=== PATIENT | female | born 1940 | race Caucasian/White ===

== ENCOUNTER 2020-02-07 11:12 | Outpatient (REF) | payer MEDICARE, OTHER, SELFPAY ==
[2020-02-07 13:35] LABS: Iron 105 mcg/dL (30-160); Percent Iron Saturation 30 % (15-50); Total Iron Binding Capacity 351 mcg/dL (228-428); Unsaturated Iron Binding 246 ug/dL
[2020-02-07 14:01] LABS: Ferritin 191 ng/mL (10-250); Vitamin D 25-OH Total 58.4 ng/mL (>30)
[2020-02-07 14:06] LABS: Vitamin B12 513 pg/mL (200-900)
== END 2020-02-07 11:13 | disposition home or self-care (01) ==
LOC: HO.MANLDS 11:12
PROVIDERS: PCP Internal Medicine; Visit Provider Internal Medicine
DX: G57.90 Unspecified mononeuropathy of unspecified lower limb (principal); I10 Essential (primary) hypertension
CPT/HCPCS: 82306; 82607; 82728; 83540

== ENCOUNTER 2020-07-10 09:21 | Outpatient (REF) | payer MEDICARE, OTHER, SELFPAY ==
[2020-07-10 12:01] LABS: Estimated Average Glucose 117 mg/dL; Hemoglobin A1c % 5.7 %
[2020-07-10 12:19] LABS: Cholesterol 176 mg/dL; HDL Cholesterol 45 mg/dL; LDL Cholesterol Calculated 90 mg/dl; Triglycerides 205 mg/dL
== END 2020-07-10 09:22 | disposition home or self-care (01) ==
LOC: HO.MANLDS 09:21
PROVIDERS: PCP Internal Medicine; Visit Provider Internal Medicine
DX: E11.9 Type 2 diabetes mellitus without complications (principal)
CPT/HCPCS: 36415; 80061; 83036

== ENCOUNTER 2021-01-26 10:34 | Outpatient (REF) | payer MEDICARE, OTHER, SELFPAY ==
[2021-01-26 14:36] LABS: Estimated Average Glucose 123 mg/dL; Hemoglobin A1c % 5.9 %
[2021-01-26 14:47] LABS: Cholesterol 170 mg/dL; HDL Cholesterol 44 mg/dL; LDL Cholesterol Calculated 93 mg/dl; Triglycerides 167 mg/dL
== END 2021-01-26 10:35 | disposition home or self-care (01) ==
LOC: HO.MANLDS 10:34
PROVIDERS: PCP Internal Medicine; Visit Provider Internal Medicine
DX: R73.01 Impaired fasting glucose (principal); E78.5 Hyperlipidemia, unspecified
CPT/HCPCS: 36415; 80061; 83036

== ENCOUNTER 2021-08-13 10:14 | Outpatient (REF) | payer MEDICARE, OTHER, SELFPAY ==
[2021-08-13 13:10] LABS: Estimated Average Glucose 126 mg/dL
[2021-08-13 13:16] LABS: Cholesterol 160 mg/dL; HDL Cholesterol 41 mg/dL; LDL Cholesterol Calculated 93 mg/dl; Triglycerides 130 mg/dL
== END 2021-08-13 10:15 | disposition home or self-care (01) ==
LOC: HO.MANLDS 10:14
PROVIDERS: PCP Internal Medicine; Visit Provider Internal Medicine
DX: R73.01 Impaired fasting glucose (principal); E78.5 Hyperlipidemia, unspecified
CPT/HCPCS: 36415; 80061; 83036

== ENCOUNTER 2021-10-11 10:45 | Outpatient (REF) | payer MEDICARE, OTHER, SELFPAY ==
[2021-10-11 13:29] LABS: MANUAL DIFF FLAG NO
[2021-10-11 13:45] LABS: Basophils Percent Auto 0.5 % (0-2); Eosinophils Percent Auto 0.6 % (0-4); Hematocrit 43.9 % (37.0-47.0); Hemoglobin 13.8 g/dl (12.0-16.0); Imm Gran Abs Auto 0.01 X10*3/uL (0.00-0.03); Imm Gran Pct Auto 0.2 % (0.0-0.4); Lymphocytes Absolute Auto 1.5 X10*3/uL (1.2-4.9); Lymphocytes Percent Auto 23.5 % (20-40); Mean Corpuscular HGB Conc 31.4 g/dl (31.0-35.0); Mean Corpuscular Hemoglobin 28.4 pg (27.0-33.0); Mean Corpuscular Volume 90.3 fL (80.0-98.0); Mean Platelet Volume 10.7 fL (9.4-12.3); Monocytes Absolute Auto 0.3 X10*3/uL (0.1-1.2); Monocytes Percent Auto 5.2 % (2-11); Neutrophils Absolute Auto 4.4 x10*3/uL (2.0-8.3); Platelet Count 263 X10*3/uL (160-400); Red Blood Count 4.86 X10*6/uL (4.20-5.50); Red Cell Distribution Width 13.6 % (11.0-16.0); White Blood Count 6.3 X10*3/uL (4.8-10.8)
[2021-10-11 14:18] LABS: Alanine Aminotransferase 41 U/L (0-31); Albumin Level 4.5 g/dL (3.5-5.0); Alkaline Phosphatase 72 U/L (39-117); Anion Gap 14 (12-20); Aspartate Amino Transferase 41 U/L (5-31); Bilirubin Total 0.9 mg/dL (0.0-1.0); Blood Urea Nitrogen 17 mg/dL (9-16); C Reactive Protein 0.52 mg/dL (< or = 0.50); Calcium 9.7 mg/dL (8.4-10.2); Carbon Dioxide 30 mmol/L (22-29); Chloride 104 mmol/L (96-108); Estimated Glomerular Filt Rate 42; Glucose Random 152 mg/dL (60-115); Potassium 4.1 mmol/L (3.3-5.1); Sodium 144 mmol/L (135-145); Total Protein 7.4 g/dL (6.5-8.0)
[2021-10-11 14:27] LABS: Erythrocyte Sedimentation Rate 28 MM/HR (0-20)
[2021-10-11 14:43] LABS: Free T4 (Free Thyroxine) 0.86 ng/dL (0.71-1.85); Thyroid Stimulating Hormone 1.96 uIU/mL (0.32-4.0)
[2021-10-12 09:32] LABS: Lyme Abs Screen <0.90 index
[2021-10-12 12:32] LABS: Anti Nuclear Antibody Screen NEGATIVE (NEGATIVE)
[2021-10-16 12:47] LABS: A. Phagocytophilum Ab IgG <1:64 (<1:64); A. Phagocytophilum Ab IgM <1:20 (<1:20); E. Chaffeensis Ab IgG <1:64 (<1:64); E. Chaffeensis Ab IgM <1:20 (<1:20)
== END 2021-10-11 10:46 | disposition home or self-care (01) ==
LOC: HO.MANLDS 10:45
PROVIDERS: Visit Provider Physician Assistant
DX: R61 Generalized hyperhidrosis (principal)
CPT/HCPCS: 36415; 80053; 84439; 84443; 85025; 85652; 86038; 86039; 86140; 86617; 86618; 86666

== ENCOUNTER 2022-05-25 09:53 | Outpatient (REF) | payer MEDICARE, OTHER, SELFPAY ==
[2022-05-25 13:04] LABS: MANUAL DIFF FLAG NO
[2022-05-25 13:14] LABS: Basophils Percent Auto 0.4 % (0-2); Eosinophils Percent Auto 0.6 % (0-4); Hematocrit 43.4 % (37.0-47.0); Hemoglobin 13.9 g/dl (12.0-16.0); Imm Gran Abs Auto 0.02 X10*3/uL (0.00-0.03); Imm Gran Pct Auto 0.3 % (0.0-0.4); Lymphocytes Absolute Auto 1.6 X10*3/uL (1.2-4.9); Lymphocytes Percent Auto 22.8 % (20-40); Mean Corpuscular Hemoglobin 29.1 pg (27.0-33.0); Monocytes Absolute Auto 0.4 X10*3/uL (0.1-1.2); Monocytes Percent Auto 5.7 % (2-11); Neutrophils Absolute Auto 4.9 x10*3/uL (2.0-8.3); Neutrophils Percent Auto 70.2 % (45-73); Platelet Count 236 X10*3/uL (160-400); Red Blood Count 4.77 X10*6/uL (4.20-5.50); Red Cell Distribution Width 13.7 % (11.0-16.0); White Blood Count 6.9 X10*3/uL (4.8-10.8)
[2022-05-25 13:21] LABS: Estimated Average Glucose 123 mg/dL; Hemoglobin A1C 150.9468 umol/L; Hemoglobin A1c % 5.9 %
[2022-05-25 13:43] LABS: Alanine Aminotransferase 52 U/L (0-31); Albumin Level 4.3 g/dL (3.5-5.0); Alkaline Phosphatase 72 U/L (39-117); Anion Gap 15 (12-20); Aspartate Amino Transferase 45 U/L (5-31); Bilirubin Total 1.5 mg/dL (0.0-1.0); Blood Urea Nitrogen 18 mg/dL (9-16); C Reactive Protein 0.47 mg/dL (< or = 0.50); Calcium 10.3 mg/dL (8.4-10.2); Carbon Dioxide 33 mmol/L (22-29); Chloride 100 mmol/L (96-108); Estimated Glomerular Filt Rate 42; Glucose Random 98 mg/dL (60-115); Potassium 4.9 mmol/L (3.3-5.1); Sodium 143 mmol/L (135-145); Total Protein 6.9 g/dL (6.5-8.0)
[2022-05-25 14:03] LABS: Thyroid Stimulating Hormone 2.54 uIU/mL (0.32-4.0)
[2022-05-25 14:12] LABS: Erythrocyte Sedimentation Rate 28 MM/HR (0-20)
== END 2022-05-25 09:54 | disposition home or self-care (01) ==
LOC: HO.MANLDS 09:53
PROVIDERS: PCP Internal Medicine; Visit Provider Physician Assistant
DX: R61 Generalized hyperhidrosis (principal); R73.01 Impaired fasting glucose
CPT/HCPCS: 36415; 80053; 83036; 84443; 85025; 85652; 86140

== ENCOUNTER 2022-11-04 10:18 | Outpatient (REF) | payer MEDICARE, OTHER, SELFPAY ==
[2022-11-04 13:21] LABS: MANUAL DIFF FLAG NO
[2022-11-04 13:31] LABS: Basophils Percent Auto 0.4 % (0-2); Eosinophils Absolute Auto 0.1 X10*3/uL (0.0-0.4); Eosinophils Percent Auto 0.7 % (0-4); Hematocrit 41.8 % (37.0-47.0); Hemoglobin 13.2 g/dl (12.0-16.0); Imm Gran Abs Auto 0.03 X10*3/uL (0.00-0.03); Imm Gran Pct Auto 0.4 % (0.0-0.4); Lymphocytes Absolute Auto 1.4 X10*3/uL (1.2-4.9); Lymphocytes Percent Auto 19.3 % (20-40); Mean Corpuscular HGB Conc 31.6 g/dl (31.0-35.0); Mean Corpuscular Hemoglobin 29.1 pg (27.0-33.0); Mean Corpuscular Volume 92.1 fL (80.0-98.0); Mean Platelet Volume 11.4 fL (9.4-12.3); Monocytes Absolute Auto 0.4 X10*3/uL (0.1-1.2); Monocytes Percent Auto 5.6 % (2-11); Neutrophils Absolute Auto 5.2 x10*3/uL (2.0-8.3); Neutrophils Percent Auto 73.6 % (45-73); Platelet Count 218 X10*3/uL (160-400); Red Blood Count 4.54 X10*6/uL (4.20-5.50); Red Cell Distribution Width 14.6 % (11.0-16.0); White Blood Count 7.1 X10*3/uL (4.8-10.8)
[2022-11-04 13:57] LABS: Alanine Aminotransferase 28 U/L (0-31); Albumin Level 4.2 g/dL (3.5-5.0); Alkaline Phosphatase 64 U/L (39-117); Anion Gap 13 (12-20); Aspartate Amino Transferase 27 U/L (5-31); Bilirubin Total 0.8 mg/dL (0.0-1.0); Blood Urea Nitrogen 19 mg/dL (9-16); Calcium 10.5 mg/dL (8.4-10.2); Carbon Dioxide 29 mmol/L (22-29); Chloride 105 mmol/L (96-108); Estimated Glomerular Filt Rate 43; Glucose Random 111 mg/dL (60-115); Potassium 4.5 mmol/L (3.3-5.1); Sodium 142 mmol/L (135-145); Total Protein 7.2 g/dL (6.5-8.0)
[2022-11-04 14:12] LABS: Erythrocyte Sedimentation Rate 23 MM/HR (0-20)
[2022-11-08 00:49] LABS: Lyme Abs Screen <0.90 index
== END 2022-11-04 10:19 | disposition home or self-care (01) ==
LOC: HO.MANLDS 10:18
PROVIDERS: Visit Provider Internal Medicine
DX: R59.9 Enlarged lymph nodes, unspecified (principal); M25.50 Pain in unspecified joint
CPT/HCPCS: 36415; 80053; 85025; 85652; 86617; 86618

== ENCOUNTER 2022-11-25 08:18 | Outpatient (REF) | payer MEDICARE, OTHER, SELFPAY ==
[2022-11-25 13:02] LABS: MANUAL DIFF FLAG NO
[2022-11-25 13:31] LABS: Estimated Average Glucose 111 mg/dL; Hemoglobin A1c % 5.5 % (<6.0)
[2022-11-25 13:34] LABS: Basophils Percent Auto 0.4 % (0-2); Eosinophils Absolute Auto 0.1 X10*3/uL (0.0-0.4); Eosinophils Percent Auto 1.2 % (0-4); Hematocrit 45.3 % (37.0-47.0); Hemoglobin 14.3 g/dl (12.0-16.0); Imm Gran Abs Auto 0.02 X10*3/uL (0.00-0.03); Imm Gran Pct Auto 0.3 % (0.0-0.4); Lymphocytes Absolute Auto 1.4 X10*3/uL (1.2-4.9); Lymphocytes Percent Auto 18.2 % (20-40); Mean Corpuscular HGB Conc 31.6 g/dl (31.0-35.0); Mean Corpuscular Hemoglobin 29.3 pg (27.0-33.0); Mean Corpuscular Volume 92.8 fL (80.0-98.0); Mean Platelet Volume 10.5 fL (9.4-12.3); Monocytes Absolute Auto 0.5 X10*3/uL (0.1-1.2); Monocytes Percent Auto 5.9 % (2-11); Neutrophils Absolute Auto 5.8 x10*3/uL (2.0-8.3); Platelet Count 257 X10*3/uL (160-400); Red Blood Count 4.88 X10*6/uL (4.20-5.50); Red Cell Distribution Width 14.6 % (11.0-16.0); White Blood Count 7.8 X10*3/uL (4.8-10.8)
[2022-11-25 14:11] LABS: Alanine Aminotransferase 27 U/L (0-31); Albumin Level 4.5 g/dL (3.5-5.0); Alkaline Phosphatase 60 U/L (39-117); Anion Gap 16 (12-20); Aspartate Amino Transferase 36 U/L (5-31); Bilirubin Total 1.3 mg/dL (0.0-1.0); Blood Urea Nitrogen 18 mg/dL (9-16); Carbon Dioxide 28 mmol/L (22-29); Chloride 101 mmol/L (96-108); Cholesterol 187 mg/dL (<200); Estimated Glomerular Filt Rate 37; Glucose Random 99 mg/dL (60-115); HDL Cholesterol 41 mg/dL (>40); LDL Cholesterol Calculated 96 mg/dL (<100); Potassium 4.3 mmol/L (3.3-5.1); Sodium 141 mmol/L (135-145); Total Protein 8.1 g/dL (6.5-8.0); Triglycerides 250 mg/dL (<150)
== END 2022-11-25 08:19 | disposition home or self-care (01) ==
LOC: HO.MANLDS 08:18
PROVIDERS: Physician Assistant; Visit Provider Internal Medicine
DX: R73.01 Impaired fasting glucose (principal); I25.10 Atherosclerotic heart disease of native coronary artery without angina pectoris
CPT/HCPCS: 36415; 80053; 80061; 83036; 85025

== ENCOUNTER 2023-02-28 08:51 | Outpatient (REF) | payer MEDICARE, OTHER, SELFPAY ==
[2023-02-28 13:48] LABS: MANUAL DIFF FLAG NO
[2023-02-28 13:53] LABS: Basophils Absolute Auto 0.1 X10*3/uL (0.0-0.2); Basophils Percent Auto 0.7 % (0-2); Eosinophils Absolute Auto 0.1 X10*3/uL (0.0-0.4); Eosinophils Percent Auto 0.8 % (0-4); Hematocrit 45.4 % (37.0-47.0); Hemoglobin 14.1 g/dl (12.0-16.0); Imm Gran Abs Auto 0.02 X10*3/uL (0.00-0.03); Imm Gran Pct Auto 0.3 % (0.0-0.4); Lymphocytes Absolute Auto 1.5 X10*3/uL (1.2-4.9); Lymphocytes Percent Auto 19.6 % (20-40); Mean Corpuscular HGB Conc 31.1 g/dl (31.0-35.0); Mean Corpuscular Hemoglobin 29.1 pg (27.0-33.0); Mean Corpuscular Volume 93.6 fL (80.0-98.0); Monocytes Absolute Auto 0.3 X10*3/uL (0.1-1.2); Monocytes Percent Auto 4.3 % (2-11); Neutrophils Absolute Auto 5.5 x10*3/uL (2.0-8.3); Neutrophils Percent Auto 74.3 % (45-73); Platelet Count 272 X10*3/uL (160-400); Red Blood Count 4.85 X10*6/uL (4.20-5.50); Red Cell Distribution Width 14.2 % (11.0-16.0); White Blood Count 7.5 X10*3/uL (4.8-10.8)
[2023-02-28 14:07] LABS: Estimated Average Glucose 120 mg/dL; Hemoglobin A1c % 5.8 % (<6.0)
[2023-02-28 14:26] LABS: Alanine Aminotransferase 37 U/L (0-31); Albumin Level 4.6 g/dL (3.5-5.0); Alkaline Phosphatase 68 U/L (39-117); Anion Gap 16 (12-20); Aspartate Amino Transferase 38 U/L (5-31); Bilirubin Total 0.9 mg/dL (0.0-1.0); Blood Urea Nitrogen 26 mg/dL (9-16); Calcium 10.7 mg/dL (8.4-10.2); Carbon Dioxide 30 mmol/L (22-29); Chloride 101 mmol/L (96-108); Cholesterol 195 mg/dL (<200); Estimated Glomerular Filt Rate 37; Glucose Random 110 mg/dL (60-115); HDL Cholesterol 44 mg/dL (>40); LDL Cholesterol Calculated 112 mg/dL (<100); Sodium 143 mmol/L (135-145); Total Protein 8.3 g/dL (6.5-8.0); Triglycerides 195 mg/dL (<150)
== END 2023-02-28 08:52 | disposition home or self-care (01) ==
LOC: HO.MANLDS 08:51
PROVIDERS: Visit Provider Physician Assistant
DX: I25.10 Atherosclerotic heart disease of native coronary artery without angina pectoris (principal); R73.01 Impaired fasting glucose
CPT/HCPCS: 36415; 80053; 80061; 83036; 85025

== ENCOUNTER 2023-12-11 10:09 | Outpatient (REF) | payer MEDICARE, OTHER, SELFPAY ==
[2023-12-11 10:14] LABS: MANUAL DIFF FLAG NO
[2023-12-11 13:37] LABS: Basophils Percent Auto 0.4 % (0-2); Eosinophils Absolute Auto 0.1 X10*3/uL (0.0-0.4); Eosinophils Percent Auto 1.3 % (0-4); Hematocrit 29.4 % (37.0-47.0); Imm Gran Abs Auto 0.03 X10*3/uL (0.00-0.03); Imm Gran Pct Auto 0.4 % (0.0-0.4); Lymphocytes Absolute Auto 1.4 X10*3/uL (1.2-4.9); Lymphocytes Percent Auto 18.4 % (20-40); Mean Corpuscular HGB Conc 30.6 g/dl (31.0-35.0); Mean Corpuscular Hemoglobin 29.3 pg (27.0-33.0); Mean Corpuscular Volume 95.8 fL (80.0-98.0); Mean Platelet Volume 10.7 fL (9.4-12.3); Monocytes Absolute Auto 0.3 X10*3/uL (0.1-1.2); Monocytes Percent Auto 4.3 % (2-11); Neutrophils Absolute Auto 5.8 x10*3/uL (2.0-8.3); Neutrophils Percent Auto 75.2 % (45-73); Platelet Count 316 X10*3/uL (160-400); Red Blood Count 3.07 X10*6/uL (4.20-5.50); Red Cell Distribution Width 15.3 % (11.0-16.0); White Blood Count 7.7 X10*3/uL (4.8-10.8)
[2023-12-11 13:55] LABS: Estimated Average Glucose 103 mg/dL; Hemoglobin A1c % 5.2 % (<6.0)
[2023-12-11 14:19] LABS: Alanine Aminotransferase 15 U/L (0-31); Albumin Level 4.2 g/dL (3.5-5.0); Alkaline Phosphatase 47 U/L (39-117); Anion Gap 12 (12-20); Aspartate Amino Transferase 19 U/L (5-31); Bilirubin Total 0.6 mg/dL (0.0-1.0); Blood Urea Nitrogen 14 mg/dL (9-16); Calcium 9.1 mg/dL (8.4-10.2); Carbon Dioxide 29 mmol/L (22-29); Chloride 107 mmol/L (96-108); Cholesterol 137 mg/dL (<200); Estimated Glomerular Filt Rate 55; Glucose Random 103 mg/dL (60-115); HDL Cholesterol 37 mg/dL (>40); LDL Cholesterol Calculated 58 mg/dL (<100); Potassium 3.9 mmol/L (3.3-5.1); Sodium 144 mmol/L (135-145); Triglycerides 211 mg/dL (<150)
== END 2023-12-11 10:10 | disposition home or self-care (01) ==
LOC: HO.MANLDS 10:09
PROVIDERS: Visit Provider Internal Medicine
DX: I25.10 Atherosclerotic heart disease of native coronary artery without angina pectoris (principal); R73.01 Impaired fasting glucose
CPT/HCPCS: 36415; 80053; 80061; 83036; 85025

== ENCOUNTER 2024-04-24 10:42 | Outpatient (REF) | payer MEDICARE, OTHER, SELFPAY ==
--- OUTSIDE RECORDS SUMMARY | 2024-04-24 11:51 | XMS_ITS | Continuity of Care Document ---
Author Organization [facility] Address [address] [place] [address]- Care Team Providers Care Clin Tech Name Role Phone Patrice Velasquez DO Primary Care Physician Encounter [facility] Date(s): 03/22/24 - 04/21/24 [facility] [address] [address]- Attending Physician: Larisa Crum Admitting Physician: Larisa Crum Referring Physician: AdmtrLarisa Encounter Type: Triage Allergies, Adverse Reactions, Alerts Substance Criticality Severity Reaction Reaction Severity Status isosorbide mononitrate Unable to assess criticality Persistent Severe unknown Active lisinopril COUGH Active shellfish 1 REDNESS AND SWEELING OF FACE Active Adhesive Bandage redness/swe llin g/itching Active Contrast Dye 2 Unable to assess criticality Persistent Severe chest tightness/hyper tension Active Glutens GI Active Latex 3 ITCHING AND BLISTERS Active Peanuts [place] Soybean Active Pollen congestion Active Strawberries GI Active Tomatoes GI UPSET Active Wheat GI Active Carrots GI Active Potatoes GI Active Other Environmental Allergy SEVERE RASH AND REDNESS FROM HEAD TO TOE hospital linen develops rash Active Rice GI Active Soy Products GI Active Onions GI Active Yeni hot lemon/near reaction Active 1hives/vomiting 2chest tightness/hypertension 3patient gets blisters Medications acetaminophen 325 mg oral tablet 650 mg, By Mouth, Every 4 hours, Refills 0, Maintenance, 11/30/23 8:12:00 AM EDT, Partial fill upon patient request if the prescription is for a schedule II opioid drug. Start Date: 11/30/23 Status: Ordered Repeat number: 1 Alpha Lipoic Acid 600 mg oral capsule 1 capsule = 600 mg, By Mouth, Daily, with meals, # 60 capsule, 0 Refills, Maintenance, 03/22/24 10:25:00 AM EST, Capsule, Partial fill upon patient request if the prescription is for a schedule II opioid drug. Start Date: 03/22/24 Status: Ordered Quantity: 60.0 Unit: capsule Repeat number: 1 aspirin 81 mg oral tablet 1 tablet = 81 mg, By Mouth, Daily, # 30 tablet, 0 Refills, Maintenance, 07/13/12 8:04:33 AM EDT, Tablet Start Date: 07/13/12 Status: Ordered Quantity: 30.0 Unit: tablet Repeat number: 1 Benadryl 25 mg oral tablet 25 mg, 1, tablet, By Mouth, 3 times a day, PRN as needed for allergy symptoms, # 30 tablet, 0 Refills, Maintenance Start Date: 01/01/21 Status: Ordered Quantity: 30.0 Unit: tablet Repeat number: 1 Benadryl Tablet By Mouth, 2 times a day, 0 Refills, Maintenance, 06/24/22 11:40:00 AM EDT, Partial fill upon patient request if the prescription is for a schedule II opioid drug. Start Date: 06/24/22 Status: Ordered Repeat number: 1 Calcium Acetate = 1,200 mg, By Mouth, 0 Refills, Maintenance, 02/04/21 10:59:00 AM EST, Partial fill upon patient request if the prescription is for a schedule II opioid drug. Start Date: 02/04/21 Status: Ordered Repeat number: 1 cetirizine 10 mg oral tablet 1 tablet = 10 mg, By Mouth, Daily, # 30 tablet, 0 Refills, Maintenance, 08/21/23 2:34:00 PM EDT, Tablet, [id number], Partial fill upon patient request if the prescription is for a schedule II opioid drug., 158, cm, 08/21/23 14:05:00 EDT, Height Start Date: 08/21/23 Status: Ordered Quantity: 30.0 Unit: tablet Repeat number: 1 Compression Stockings surgical, knee high length 15 mm Hg, # 1 pair, Refills 1, Tot. Refills 1, Maintenance, venous edemabilateral, 10/12/17 12:11:40 PM EDT, Compound Start Date: 10/12/17 Status: Ordered Quantity: 1.0 Unit: pair Repeat number: 2 CoQ10 2 tsp, By Mouth, Daily, 0 Refills, Maintenance, 04/10/20 11:40:00 AM EST, Partial fill upon patient request if the prescription is for a schedule II opioid drug. Start Date: 04/10/20 Status: Ordered Repeat number: 1 Crestor 5 mg oral tablet 1 tablet = 5 mg, By Mouth, Every 48 hours, # 15 tablet, 0 Refills, Maintenance, 12/23/18 11:00:45 AMEDT, Tablet, [facility] 3 Start Date: 12/23/18 Stop Date: 01/22/19 Status: Ordered Quantity: 15.0 Unit: tablet Repeat number: 1 Flonase Allergy Relief 50 mcg/inh nasal spray 1 sprays = 50 mcg, Nares, Both, Daily, shake well before using, # 9.9 mL, 0 Refills, Maintenance, 08/21/23 2:34:00 PM EDT, [place], [id number], Partial fill upon patient request if the prescription is for a schedule II opioid drug., 158, cm, 08/21/23 14:05:00 EDT, Height Start Date: 08/21/23 Stop Date: 09/20/23 Status: Ordered Quantity: 9.9 Unit: mL Repeat number: 1 Labetalol = 100 mg, 2 times a day, 0 Refills, Maintenance, 06/24/22 11:39:00 AM EDT, Partial fill upon patient request if the prescription is for a schedule II opioid drug. Start Date: 06/24/22 Status: Ordered Repeat number: 1 Lasix 20 mg oral tablet 20 mg, 1, tablet, By Mouth, Daily, # 30 tablet, Refills 0, Tot. Refills 0, Maintenance, 12/23/18 11:00:43 AM EDT, Route to Pharmacy Electronically, [facility] 3 Start Date: 12/23/18 Stop Date: 01/22/19 Status: Ordered Quantity: 30.0 Unit: tablet Repeat number: 1 Medrol 32 mg oral tablet See Instructions, take 32mg by mouth 12 hrs before and 2 hrs before procedure, # 2 tablet, 0 Refills, Maintenance, 11/27/23 3:01:00 PM EDT, [id number], Partial fill upon patient request if the prescription is for a schedule II opioid drug., 158, cm, 08/21/23 14:05:00 EDT, Height Start Date: 11/27/23 Status: Ordered Quantity: 2.0 Unit: tablet Repeat number: 1 Misc Rx Refills 0, Maintenance, Gluten Digestive Enzymes, 06/24/22 11:38:00 AM EDT, Supply Start Date: 06/24/22 Status: Ordered Repeat number: 1 Multi Vitamin+ 0 Refills, Maintenance, 02/04/21 10:59:00 AM EST, Partial fill upon patient request if the prescription is for a schedule II opioid drug. Start Date: 02/04/21 Status: Ordered Repeat number: 1 Probiotic Formula By Mouth, Daily, 0 Refills, Maintenance, 02/04/21 11:00:00 AM EST, Partial fill upon patient request if the prescription is for a schedule II opioid drug. Start Date: 02/04/21 Status: Ordered Repeat number: 1 Ropinirole = 0.5 mg, By Mouth, Daily, 0 Refills, Maintenance, 01/29/20 4:38:00 PM EST Start Date: 01/29/20 Status: Ordered Repeat number: 1 similase GFCF similase GFCF, See Instructions, Refills 0, Maintenance, 1-3 times daily as needed, 03/17/16 1:43:10 PM EST, Compound Start Date: 03/17/16 Status: Ordered Repeat number: 1 Vitamin B12 0 Refills, Maintenance, 06/24/22 11:39:00 AM EDT, Partial fill upon patient request if the prescription is for a schedule II opioid drug. Start Date: 06/24/22 Status: Ordered Repeat number: 1 Vitamin C = 500 mg, By Mouth, Daily, 0 Refills, Maintenance, 04/10/20 11:39:00 AM EST, Partial fill upon patient request if the prescription is for a schedule II opioid drug. Start Date: 04/10/20 Status: Ordered Repeat number: 1 Vitamin D3 = 2,000 International_Units, By Mouth, Daily, 0 Refills, Maintenance, 04/10/20 11:41:00 AM EST, Partial fill upon patient request if the prescription is for a schedule II opioid drug. Start Date: 04/10/20 Status: Ordered Repeat number: 1 Problem List Condition Confirmation Course Effective Dates Status Health Status Informant Benign essential hypertension Confirmed Active Carotid artery stenosis, Right CEA 1 Confirmed 1997 Active Chronic cough Confirmed Active Coronary arteriosclerosis Confirmed Active Critical limb ischemia of both lower extremities Confirmed Active Aortic ectasia 2 Confirmed Active Essential hypertension Confirmed Active Esophageal reflux (GERD) Confirmed Active h/o GI bleed 3 Confirmed 2011 Active Heart murmur Confirmed Active White coat hypertension Confirmed Active Left bundle branch block Confirmed Active DJD (degenerative joint disease) Confirmed Active Pure hypercholesterolemia Confirmed Active PVD (peripheral vascular disease) with claudication Confirmed Active Vertigo Confirmed Active Dehiscence of wound Confirmed Active 1in [place] 2Last scan??was 2022. 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 ??Dr. Salmeron recommend to check this??every few years due 2025. ?? 3taken off Plavix due to GI bleed history Vital Signs Most recent to oldest [Reference Range]: 1 Height 157.5 cm (11/27/23 3:04 PM) Weight 68 kg (11/27/23 3:04 PM) Body Mass Index [18.5-24.99 kg/m2] 27.41 kg/m2 *H* (11/27/23 3:04 PM) Dry Weight 68 kg (11/27/23 3:04 PM) Weight Obtained Via Patient/family state d (11/27/23 3:04 PM) Dry Weight Obtained Via Patient/family s tated (11/27/23 3:04 PM) Social History Social History Type Response Smoking Status Never smoker; Tobacc o user in household: No entered on: 08/06/15 Sex Sex Representation Female (finding) Patient Care team information Care Team Personnel Name: Bonnie Vee RN Position: [facility] Mold Closer Helper Member Role: Primary Care Nurse Name: Torie Ladd RN Position: [facility] RN Member Role: Primary Care Nurse Name: Patrice Velasquez DO Position: Reference Physician Member Role: PCP Address: [address] [place] [address] [place] [address]- Telecom: Name: Marion Perera RN Position: [facility] RN Member Role: Primary Care Nurse Name: Eda Sanchez RN Position: [facility] RN Member Role: Primary Care Nurse Name: Jihan Duggan RN Position: [facility] RN Member Role: Primary Care Nurse Name: Lolly Martinez NP Position: [facility] PCO Associate Professional Member Role: Primary Care Nurse Address: [address] [place] [address] Telecom: Name: Zaina Nayak RN Position: [facility] Hospital Mold Closer Helper Member Role: Primary Care Nurse Name: Jessie Delgado RN Position: [facility] RN Member Role: Primary Care Nurse Name: Jenny Short RN Position: [facility] RN Member Role: Primary Care Nurse Name: Ellie Burgess RN Position: [facility] RN Member Role: Primary Care Nurse Care Team Related Persons Name: LEFTY STRAUSS Name: LEFTY STRAUSS Insurance Providers Guarantor name: SHU STRAUSS Health Plan Information #: 1 Payer: MEDICARE PART B OUTPT Member Number: NA Policy Number: NA Group Number: NA Health Plan Information #: 2 Payer: [employer] Member Number: NA Policy Number: NA Group Number: NA
--- OUTSIDE RECORDS SUMMARY | 2024-04-24 11:51 | XMS_ITS | Data Portability ---
Author Organization [place] - [facility], Allergy Address [address] [facility] [address] [place] [id number] Care Team Providers Care Divisional Merchandising Manager Name Role Phone MIKEY RANGEL Primary Care Provider Assessment Encounter Date Assessment Date Assessment LastModified by Organization Details LastModified Time 04/09/2024 04/09/2024 83 year old female presents for ear cleaning. Ears were meticulously cleaned bilaterally today with fine pics. Patient is encouraged to avoid Q-tips in her ears relative to packing the wax in tighter. She uses binaural amplification through [facility]. She has upcoming audiometric testing at [facility]. She will follow up with us on an as needed basis. [email or web address] Not available 04/09/2024 16:59:52 Plan of Treatment Reminders Order Date Submit Date Provider Last Modified By Organization Details Last Modified Time Details Appointments None record ed. Lab None record ed. Referral None record ed. Procedures None record ed. Surgeries None record ed. Imaging None record ed. Medication Orders None record ed. Patient TargetsNo targets recorded. Patient InstructionsNo instructions recorded. Reason for Referral None Reported. Problems Name Problem SNOMED Code Status Onset Date Resolution Date Notes Provider Name and Address Organization Details Recorded Time Impacted cerumen of bilateral ears [id number] Active 2021 Impacted cerumen, bilateral ; Note: Date Diagnosed : 08/04/2021 2:25 PM (H61.23) Not Available [facility] 4 03:14:15 Problem Notes None recorded. Procedures Surgical History Date Name Laterality Status Provider Name and Address Organization Details Recorded Time 5 Cerumen removal without microscope bilat completed TRICIA GOMES PA-C [address] [facility],[address], [place], [address], [facility] - [facility] 04/09/2024 16:59:11 Imaging Results None recorded. Procedure Notes None recorded. Medical Equipment None Reported. Medications Name Sig Start Date Stop Date Status Note LastModified by Organization Details LastModified Time doxycyclin e hyclate 100 mg capsule TAKE 1 CAPSULE BY MOUTH TWICE DAILY FOR 10 DAYS active Not Available Not Available No t Available cetirizine 10 mg tablet TAKE 10 MG BY MOUTH 12 HOURS BEFORE AND 2 HOURS BEFORE PROCEDURE active Not Available Not Available No t Available methylpred nisolone 32 mg tablet TAKE 32MG BY MOUTH 12 HOURS BEFORE AND 2 HOURS BEFORE PROCEDURE active Not Available Not Available No t Available Kathy Low Dose Aspirin 81 mg tablet,del ayed release active Medicatio n ID: [id number] Br and Name: Aspirin Low Dose Send Method: E-Prescri bed Subs Allowed: subs OK Medica tionGener icName: Aspirin Low Dose Not Available Not Available Not Available triamcinol one acetonide 0.1 % topical cream APPLY TO AFFECTED AREA ON LEFT FOOT TWICE DAILY FOR 2 WEEKS. NOT FOR FACE. active Not Available Not Available No t Available ropinirole 0.5 mg tablet TAKE 1 AND ONE-HALF TABLETS BY MOUTH 1 TIME IN THE EVENING active Not Available Not Available No t Available furosemide 20 mg tablet TAKE 1 TABLET BY MOUTH EVERY DAY MAY TAKE AN ADDITONAL DOSE FOR 3 DAYS WHEN WEIGHT EXCEEDS 2 LBS active Not Available Not Available No t Available labetalol 100 mg tablet TAKE 1 TABLET BY MOUTH TWICE DAILY active Not Available Not Available No t Available ondansetro n 4 mg disintegra ting tablet DISSOLVE 1 TABLET ON THE TONGUE TWICE DAILY FOR 14 DAYS NEEDED FOR NAUSEA active Not Available Not Available No t Available fluticason e propionate 50 mcg/actuat ion nasal spray,susp ension SHAKE LIQUID AND USE 1 SPRAY IN EACH NOSTRIL DAILY SHAKE WELL BEFORE USING active Not Available Not Available No t Available valsartan 40 mg tablet active Medicatio n ID: [id number] Br and Name: valsartan Send Method: E-Prescri bed Subs Allowed: subs OK Medica tionGener icName: valsartan Not Available Not Available Not Available rosuvastat in 5 mg tablet TAKE 1 TABLET BY MOUTH EVERY DAY active Not Available Not Available No t Available mometasone 0.1 % topical solution APPLY TOPICALLY TO THE AFFECTED AREA DAILY FOR 7 DAYS APPLY IN A THIN LAYER TO THE AFFECTED SKIN AND. RUB IN GENTLY AND COMPLETEL Y active Not Available Not Available No t Available Vitals Date Recorded Body height Body mass index (BMI) Body weight Provider Name and Address Organization Details Last Updated DateTime 04/09/2024 157.48 cm 27.6 kg/m2 66961.45 g Saulsilvino Daniels [place] - [facility] 04/09/2024 13:16:59 Social History None recorded. Functional Status None recorded. Mental Status None recorded. Family History Nothing Reported. Medical History No medical history recorded. Gynecological HistoryNo gynecological history recorded. Obstetrics History GPAL:G 0 P 0 0 0 0 Past Encounters Encounter ID Performer Location Encounter Start Date Encounter Closed Date Diagnosis/Indication Diagnosis SNOMED-CT Code Diagnosis ICD10 Code Diagnosis Note [id number] JED REY MD [facility] [address] [address] 04/09/2024 13:05:43 04/09/2024 13:32:59 Impacted cerumen of bilateral ears [id number] H61.23 Health Concerns Section Related Observation LastModified by Organization Detai ls LastModified Time None Recorded Concern Status LastModified by Organization Details LastModified Time None Recorded Advance Directives Directive None Recorded Payers Encounter Date Sequence Insurance Name Policy Number Policy Sharp Covered Member ID Sharp Member ID Guarantor Name 04/09/2024 1 [place]ICARE [place]: [employer] [id number] [employer]an [employer] 04/09/2024 2 [facility] (MEDICARE SUPPLEMENT) Rohan [employer]ting [id number] [employer] Notes Date Note Type Note Provider Name and Address Organization Details Recorded Time 04/09/2024 text/html 83 year old alex garcia presents for ear cleaning. She uses binaural amplification through [facility]. She has upcoming audiometric testing at [facility]. JED REY MD [address] [place] [address], [place], [address], [place] - [facility] 04/10/2024 10:23:48 OBGyn Episode No OBEpisode recorded.
--- OUTSIDE RECORDS SUMMARY | 2024-04-24 11:51 | XMS_ITS | Continuity of Care Document ---
Author Organization [facility] - [facility], [facility] Address [address] [place] [address] Care Team Providers Care Inspector Metal Fabricating Name Role Phone MIKEY RANGEL Primary Care Provider Assessment Encounter Date Assessment Date Assessment LastModified by Organization Details LastModified Time 04/09/2024 04/09/2024 83 year old female presents for ear cleaning. Ears were meticulously cleaned bilaterally today with fine pics. Patient is encouraged to avoid Q-tips in her ears relative to packing the wax in tighter. She uses binaural amplification through [facility]. She has upcoming audiometric testing at [facility]. She will follow up with us on [...] Recorded Time Impacted cerumen of bilateral ears [id number] Active 2021 Impacted cerumen, bilateral ; Note: Date Diagnosed : 08/04/2021 2:25 PM (H61.23) Not Available [facility] 4 03:14:15 Problem Notes None recorded. Procedures Surgical History Date Name Laterality Status Provider Name and Address Organization Details Recorded Time 5 Cerumen removal without microscope bilat completed TRICIA GOMES PA-C [address] [place] [address],[place] [address], [place], [address], [facility] - [facility] 04/09/2024 16:59:11 Imaging Results None recorded. [...] tablet,del ayed release active Medicatio n ID: [id number] Br and Name: Aspirin Low Dose Send [...] 40 mg tablet active Medicatio n ID: [id number] Br and Name: valsartan Send Method: E-Prescri [...] Updated DateTime 04/09/2024 157.48 cm 27.6 kg/m2 09769.45 g Marion Frances [place] - [facility] 04/09/2024 13:16:59 Social History None recorded. Functional Status None recorded. Mental Status None recorded. Family History Nothing Reported. Medical History No medical history recorded. Gynecological HistoryNo gynecological history recorded. Obstetrics History GPAL:G 0 P 0 0 0 0 Past Encounters Encounter ID Performer Location Encounter Start Date Encounter Closed Date Diagnosis/Indication Diagnosis SNOMED-CT Code Diagnosis ICD10 Code Diagnosis Note [id number] JED REY MD [facility] on [address] [place] [address] 04/09/2024 13:05:43 04/09/2024 13:32:59 Impacted cerumen of bilateral ears [id number] H61.23 Health Concerns Section Related Observation LastModified by Organization Detai ls LastModified Time None Recorded Concern Status LastModified by Organization Details LastModified Time None Recorded Payers Encounter Date Sequence Insurance Name Policy Number Policy Sharp Covered Member ID Sharp Member ID Guarantor Name 04/09/2024 1 MEDICARE [place]: [employer]ATIONAL [employer]MENT [employer] [id number] [employer] 04/09/2024 2 [facility] (MEDICARE SUPPLEMENT) [employer] [id number] [employer] Notes Date Note Type Note Provider Name and Address Organization Details Recorded Time 04/09/2024 text/html 83 year old alex garcia presents for ear cleaning. She uses binaural amplification through [facility]. She has upcoming audiometric testing at [facility]. JED REY MD [address] [place] [address], [address], [place] - [facility] 04/10/2024 10:23:48 OBGyn Episode No OBEpisode recorded.
--- OUTSIDE RECORDS SUMMARY | 2024-04-24 11:52 | XMS_ITS | Continuity of Care Document ---
Author Organization [facility] Address [address] [address]- Care Team Providers Care Filter Press Supervisor Name Role Phone Patrice Velasquez DO Primary Care Physician [phone] [place] [facility] [place]): [place]22[place]24 - 03/29/24 [facility] [address] [address]- Encounter Diagnosis Peripheral artery disease(Discharge Diagnosis) - 03/22/24 Attending Physician: Patito Salmeron MD Admitting Physician: Patito Salmeron MD Referring Physician: Patrice Velasquez DO Encounter Type: Office Visit Allergies, Adverse Reactions, Alerts Substance Criticality Severity Reaction Reaction Severity Status isosorbide mononitrate Unable to assess criticality Persistent Severe unknown Active shellfish 1 REDNESS AND SWEELING OF FACE Active Adhesive Bandage redness/swe llin g/itching Active Glutens GI Active Tomatoes GI UPSET Active lisinopril COUGH Active Contrast Dye 2 Unable to assess criticality Persistent Severe chest tightness/hyper tension Active Latex 3 ITCHING AND BLISTERS Active Pollen congestion Active Strawberries GI Active Peanuts [place] Soybean Active Wheat GI Active Potatoes GI Active Other Environmental Allergy SEVERE RASH AND REDNESS FROM HEAD TO TOE hospital linen develops rash Active Rice GI Active Carrots GI Active Soy Products GI Active Onions [...] Refills, Maintenance, 08/21/23 2:34:00 PM EDT, Tablet, [id number], Partial fill upon patient request if the [...] 0 Refills, Maintenance, 12/23/18 11:00:45 AMEDT, Tablet, [facility] 3 Start Date: 12/23/18 Stop Date: 01/22/19 Status: Ordered Quantity: 15.0 Unit: tablet Repeat number: 1 Flonase Allergy Relief 50 mcg/inh nasal spray 1 sprays = 50 mcg, Nares, Both, Daily, shake well before using, # 9.9 mL, 0 Refills, Maintenance, 08/21/23 2:34:00 PM EDT, [place], [email or web address] #[id number], Partial fill upon patient request if the [...] 11:00:43 AM EDT, Route to Pharmacy Electronically, [facility] 3 Start Date: 12/23/18 Stop Date: 01/22/19 Status: Ordered Quantity: 30.0 Unit: tablet Repeat number: 1 Medrol 32 mg oral tablet See Instructions, take 32mg by mouth 12 hrs before and 2 hrs before procedure, # 2 tablet, 0 Refills, Maintenance, 11/27/23 3:01:00 PM EDT, [id number], Partial fill upon patient request if the [...] Active Dehiscence of wound Confirmed Active 1in [place] 2Last scan??was 2022. 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 ??Dr. Salmeron recommend to check this??every few years due 2025. ?? 3taken off Plavix due to GI bleed history Diagnosis Diagnosis Type Effective Dates Health Status Clinical Service Informant Peripheral artery disease Discharge Diagnosis 03/22/24 Vital Signs Most recent to oldest [Reference Range]: 1 Height 157.48 cm (03/22/24 10:15 AM) Weight 71.4 kg (03/22/24 10:15 AM) Oxygen Saturation [94-100 %] 97 % (03/22/24 10:15 AM) Pulse Rate [55-90 bpm] 73 bpm (03/22/24 10:15 AM) Body Mass Index [18.5-24.99 kg/m2] 28.79 kg/m2 *H* (03/22/24 10:15 AM) Blood Pressure [90-138/55-84 mm Hg] 134/ 51mm Hg (03/22/24 10:15 AM) Respiratory Rate [16-30 br/min] 16 br/mi n (03/22/24 10:15 AM) Temperature [96.8-100.4 DegF] 97.4 DegF (03/22/24 10:15 AM) Mode of Delivery (Oxygen) Room air (03/22/24 10:15 AM) Blood pressure sites Arm, left (03/22/24 10:15 AM) Temperature Route Oral (03/22/24 10:15 AM) Weight Obtained Via Standing scale (03/22/24 10:15 AM) Social History Social History Type Response Smoking Status Never smoker; Tobacc o user in household: No entered on: 08/06/15 Sex Sex Representation Female (finding) Note * Susan Wan: PERFORM Event Display: Patient Education/Instruction Authored Date: [id number] Ambulatory Adult Visit Summary [facility] [address] [place] [address] Name: SHU STRAUSS : 1940?? Visit: 03/22/2024 09:48?? Ambulatory Visit Instructions ?? Your Care Team Primary Care Provider Eva MCLAUGHLIN, Patrice Canales? This Visit Provider Jaron COLMENARES , Patito Madrigal Vitals Signs Temperature: 97.4 DegF Height: 157.48 cm Pulse Rate: 73 bpm Weight: 71.4 kg Respiratory Rate: 16 br/min Body Mass Index:??28.79 kg/m2??High Systolic Blood Pressure: 134 mm Hg Body surface area: 1.77 Diastolic Blood Pressure:??51 mm Hg??Low ?? Oxygen Saturation: 97 % ?? What to do next Scheduled Follow-Up Appointments Monday 2:00 PM EST ?? Where: [facility] Status: Pending Monday 2:45 PM EST ?? Where: [facility] Status: Pending Monday 3:15 PM EST ?? Where: [facility] Status: Pending 2024 8:45 AM EST ?? With: Marnie COLMENARES, Zach Rhodes Where: [facility] [address] [place] [id number]- Status: Pending Monday 7:40 AM EDT ?? Where: [facility] [address] [place] [address]- Status: Pending Follow-Up Appointments Follow up Appointment - Ordered?-- 6 months, with JACKLYN and bypass graft u/s, 03/22/24 11:00:00 EST Future Orders Creatinine - Routine, Once, 07/14/23 14:34:00 EDT, Future Order, [facility], Blood?? Medications The list below reflects the information in our records and provided by you today along with any changes made during this visit. Please continue your medications until treatment is completed or stopped by your provider. If this is different from the information you have or there are other questions,please contact the prescribing provider. What How Much When Instructions Unchanged Acetaminophen (acetaminophen 325 mg oral tablet) 650 Milligram Oral Every 4 hours Unchanged alpha-lipoic acid (Alpha Lipoic Acid 600 mg oral capsule) 1 capsule Oral Daily with meals ?? Unchanged Ascorbic Acid (Vitamin C) 500 Milligram Oral Daily Unchanged Aspirin (aspirin 81 mg oral tablet) 1 tab(s) Oral Daily Unchanged bifidobacterium-lactobacillus (Probiotic Formula) Oral Daily Unchanged Calcium Acetate 1,200 Milligram Oral Unchanged Cetirizine (cetirizine 10 mg oral tablet) 1 tab(s) Oral Daily Unchanged Cholecalciferol (Vitamin D3) 2,000 International Unit Oral Daily Unchanged Cyanocobalamin (Vitamin B12) Unchanged DiphenhydrAMINE (Benadryl 25 mg oral tablet) 1 tab(s) Oral 3 times a day as needed for as needed for allergy symptoms Unchanged DiphenhydrAMINE (Benadryl Tablet) Oral Twice a day Unchanged Durable Medical Equipment (Compression Stockings) surgical, knee high length 15 mm Hg venous edema bilateral ?? Unchanged Fluticasone Nasal (Flonase Allergy Relief 50 mcg/ inh nasal spray) 1 spray(s) Nares, Both Daily Duration: 30 Days shake well before using ?? Unchanged Furosemide (Lasix 20 mg oral tablet) 1 tab(s) Oral Daily Duration: 30 Days Unchanged Labetalol 100 Milligram Twice a day Unchanged MethylPREDNISolone (Medrol 32 mg oral tablet) See instructions take 32mg by mouth 12 hrs before and 2 hrs before procedure ?? Unchanged Miscellaneous Rx (Misc Rx) Gluten Digestive Enzymes ?? Unchanged Miscellaneous Rx (similase GFCF) See instructions 1-3 times daily as needed ?? Unchanged Multivitamin (Multi Vitamin+) Unchanged Ropinirole 0.5 Milligram Oral Daily Unchanged Rosuvastatin (Crestor 5 mg oral tablet) 1 tab(s) Oral Every 48 hours Duration: 30 Days Unchanged Ubiquinone (CoQ10) 2 tsp Oral Daily Medications and Immunizations Administered Medications Given During Visit No medications given during this visit.?? Allergies (NKA means No Known Allergies) Contrast Dye??(chest tightness/hypertension) isosorbide mononitrate??(unknown) Adhesive Bandage??(redness/swelling/itching) Carrots??(GI) Glutens??(GI) Latex??(ITCHING AND BLISTERS) Yeni??(hot lemon/near reaction) Onions??(GI) Other Environmental Allergy??(SEVERE RASH AND REDNESS FROM HEAD TO TOE, hospital linen develops rash) Peanuts??([place], Soybean) Pollen??(congestion) Potatoes??(GI) Rice??(GI) Soy Products??(GI) Strawberries??(GI) Tomatoes??(GI UPSET) Wheat??(GI) lisinopril??(COUGH) shellfish??(REDNESS AND SWEELING OF FACE) Common Emergency Awareness Tips IS IT A STROKE? Act FAST and Check for these signs: FACE Does the face look uneven? ARM Does one arm drift down? SPEECH Does their speech sound strange? TIME Call at any sign of stroke ?? Heart Attack Signs Chest discomfort: Most heart attacks involve discomfort in the center of the chest and lasts more than a few minutes, or goes away and comes back. It can feel like uncomfortable pressure, squeezing, fullness or pain. Discomfort in upper body: Symptoms can include pain or discomfort in one or both arms, back, neck, jaw or stomach. Shortness of breath: With or without discomfort. Other signs: Breaking out in a cold sweat, nausea, or lightheaded. Remember, MINUTES DO MATTER. If you experience any of these heart attack warning signs, call to get immediate medical attention! ?? Smoking can increase your chances of developing chronic health problems and can cause harmful effects to other family members in your house. If you smoke, you are strongly encouraged to quit. Please call [facility] at [phone] or [phone] ([phone]) or log in to [email or web address] for referrals to smoking cessation programs. ?? The National Suicide Prevention Hotline is available 10/10 if you or someone you know needs to find a reason to keep living. By calling 9-522-279-talk (8800) you'll be connected to a skilled, trained counselor at a crisis center in your area. [facility] You can view and manage your care through the patient portal or by using a health care cely of your choosing. [employer] is a website that allows you to securely view your medical information including your hospital discharge summary, office visit summaries, medications and follow-up visits. You can also request appointments, renew medications, and request access to your medical information using a health care cely of your choosing, or just ask a question. You can enroll at [email or web address] or register during your next office visit. [facility], in keeping with [facility] guidance, no longer requires face masks for staff, patientsor visitors in most situations. Similiar to time spent indoors at other locations, there is the chance that you were exposed to repiratory viruses during your time with us (such as flu or COVID-19). If you develop symptoms concerning for a viral respiratory infection, please seek testing (and treatment if indicated) from your medical provider or home test kit. ?? Disclaimer: The information provided is of a general nature and is intended to be used in conjunction with the recommendations and advice of your health care practitioner. Every effort has been made to ensure that the information provided is accurate and complete at the time it is provided to you however, as your needs change, or, as new information becomes available, different or additional instructions may be required. ?? If you have questions, please consult with your primary care provider or pharmacist, as appropriate. This information is not intended to serve as substitution for assessment and evaluation by a qualified health care provider. If you do not have a primary care provider, you may find a [facility] provider by calling [facility] at [phone]. Patient Care team information Care Team Personnel Name: Bonnie Vee RN Position: [facility] Repairer Member Role: Primary Care Nurse Name: Torie Ladd RN Position: [facility] RN Member Role: Primary Care Nurse Name: Patrice Velasquez DO Position: Reference Physician Member Role: PCP Address: [address] [place] [address] [place] [address]- Telecom: Name: Marion Perera RN Position: [facility] RN Member Role: Primary Care Nurse Name: Eda Sanchez RN Position: [facility] RN Member Role: Primary Care Nurse Name: Jihan Duggan RN Position: [facility] RN Member Role: Primary Care Nurse Name: Lolly Martinez NP Position: [facility] PCO Associate Professional Member Role: Primary Care Nurse Address: [address] [place] [id number] Telecom: Name: Zaina Nayak RN Position: [facility] Rep[employer]r Member Role: Primary Care Nurse Name: Jessie Delgado RN Position: [facility] SN RN Member Role: Primary Care Nurse Name: Jenny Short RN Position: [facility] RN Member Role: Primary Care Nurse Name: Ellie Burgess RN Position: [facility] RN Member Role: Primary Care Nurse Care Team Related Persons Name: LEFTY STRAUSS Name: LEFTY STRAUSS Insurance Providers Guarantor name: SHU BERNALLOUIS Health Plan Information #: 1 Payer: MEDICARE PART B OUTPT Member Number: [id number] Policy Number: NA Group Number: NA Health Plan Information #: 2 Payer: [employer] Member Number: [id number] Policy Number: NA Group Number: NA
--- OUTSIDE RECORDS SUMMARY | 2024-04-24 11:52 | XMS_ITS | Data Portability ---
Author Organization [facility] Address [address] [place] [address] Assessment Encounter Date Assessment Date Assessment LastModified by Organization Details LastModified Time 05/30/2022 05/30/2022 [id number] [place] [id number] (REVIEWER SALES) MDM MODERATE MUST MEET 2 OUT OF 3 ELEMENTS: PROBLEMS, DATA OR RISK ELEMENT 1: PROBLEMS ADDRESSED 1 OR MORE CHRONIC ILLNESS WITH EXACERBATION OR 2 OR MORE STABLE CHRONIC ILLNESSES OR 1 UNDIAGNOSED NEW PROBLEM OR 1 ACUTE ILLNESS W/SYMPTOMS OR 1 ACUTE COMPLICATED INJURY ELEMENT 2: DATA MUST MEET 1 OF 3 CATEGORIES CATEGORY 1: REVIEW OF PRIOR EXTERNAL NOTES, REVIEW OF RESULTS, ORDERING OF EACH TEST, ASSESSMENT REQUIRING INDEPENDENT HISTORIAN OR CATEGORY 2: INDEPENDENT INTERPRETATION OF TESTS BY ANOTHER PHYSICIAN OR SPECIALIST OR CATEGORY 3: DISCUSSION OF MGT OR TEST INTERPRETATION W/EXTERNAL PHYSICIAN OR SPECIALIST ELEMENT 3: RISK RISK OF COMPLICATIONS AND/OR MORBIDITY OR MORTALITY OF PATIENT MANAGEMENT PROVIDER MUST THOROUGHLY DOCUMENT EACH ELEMENT THAT IS COVERED Not available 05/30/2022 10:20:41 06/19/2023 06/19/2023 [id number] [place] [id number] (REVIEWER SALES) MDM MODERATE MUST MEET 2 OUT OF 3 ELEMENTS: PROBLEMS, DATA OR RISK ELEMENT 1: PROBLEMS ADDRESSED 1 OR MORE CHRONIC ILLNESS WITH EXACERBATION OR 2 OR MORE STABLE CHRONIC ILLNESSES OR 1 UNDIAGNOSED NEW PROBLEM OR 1 ACUTE ILLNESS W/SYMPTOMS OR 1 ACUTE COMPLICATED INJURY ELEMENT 2: DATA MUST MEET 1 OF 3 CATEGORIES CATEGORY 1: REVIEW OF PRIOR EXTERNAL NOTES, REVIEW OF RESULTS, ORDERING OF EACH TEST, ASSESSMENT REQUIRING INDEPENDENT HISTORIAN OR CATEGORY 2: INDEPENDENT INTERPRETATION OF TESTS BY ANOTHER PHYSICIAN OR SPECIALIST OR CATEGORY 3: DISCUSSION OF MGT OR TEST INTERPRETATION W/EXTERNAL PHYSICIAN OR SPECIALIST ELEMENT 3: RISK RISK OF COMPLICATIONS AND/OR MORBIDITY OR MORTALITY OF PATIENT MANAGEMENT PROVIDER MUST THOROUGHLY DOCUMENT EACH ELEMENT THAT IS COVERED Not available 06/19/2023 10:16:10 12/15/2023 12/15/2023 [id number] [place] [id number] (REVIEWER SALES) MDM MODERATE MUST MEET 2 OUT OF 3 ELEMENTS: PROBLEMS, DATA OR RISK ELEMENT 1: PROBLEMS ADDRESSED 1 OR MORE CHRONIC ILLNESS WITH EXACERBATION OR 2 OR MORE STABLE CHRONIC ILLNESSES OR 1 UNDIAGNOSED NEW PROBLEM OR 1 ACUTE ILLNESS W/SYMPTOMS OR 1 ACUTE COMPLICATED INJURY ELEMENT 2: DATA MUST MEET 1 OF 3 CATEGORIES CATEGORY 1: REVIEW OF PRIOR EXTERNAL NOTES, REVIEW OF RESULTS, ORDERING OF EACH TEST, ASSESSMENT REQUIRING INDEPENDENT HISTORIAN OR CATEGORY 2: INDEPENDENT INTERPRETATION OF TESTS BY ANOTHER PHYSICIAN OR SPECIALIST OR CATEGORY 3: DISCUSSION OF MGT OR TEST INTERPRETATION W/EXTERNAL PHYSICIAN OR SPECIALIST ELEMENT 3: RISK RISK OF COMPLICATIONS AND/OR MORBIDITY OR MORTALITY OF PATIENT MANAGEMENT PROVIDER MUST THOROUGHLY DOCUMENT EACH ELEMENT THAT IS COVERED Not available 12/15/2023 09:16:17 04/19/2024 04/19/2024 [id number] [place] [id number] (REVIEWER SALES) MDM HIGH MUST MEET 2 OUT OF 3 ELEMENTS: PROBLEMS, DATA OR RISK ELEMENT 1: PROBLEMS 1 OR MORE CHRONIC ILLNESS W/SEVERE EXACERBATION, PROGRESSION MAY REQUIRE HOSPITAL LEVEL CARE OR 1 ACUTE OR CHRONIC ILLNESS OR INJURY THAT POSES A THREAT TO LIFE OR BODILY FUNCTION ELEMENT 2: DATA: MUST MEET 2 OF 3 CATEGORIES CATEGORY 1 REVIEW OF PRIOR EXTERNAL NOTES REVIEW OF THE RESULTS ORDERING OF EACH TEST ASSESSMENT REQUIRING INDEPENDENT HISTORIAN(S) CATEGORY 2: INDEPENDENT INTERPRETATION OF TESTS BY ANOTHER PROVIDER/SPECIALI ST CATEGORY 3: DISCUSSION OF MGT OR TEST INTERPRETATION W/EXTERNAL PHYSICIAN/SPECIAL IST ELEMENT 3: RISK HIGH RISK OF MORBIDITY FROM ADDITIONAL DIAGNOSTIC TESTING OR TREATMENT PROVIDER MUST THOROUGHLY DOCUMENT EACH ELEMENT THAT IS COVERED Not available 04/19/2024 09:15:08 Plan of Treatment Reminders Order Date Submit Date Provider Last Modified By Organization Details Last Modified Time Details Appointments None recorded. Lab vitamin B12 + folate, serum or blood 2022 023 [facility], [address] [place] [address], [place], [address], 3 12:10:31 TSH, serum or plasma 2022 023 [facility], [address] [place] [address], [place], [address], 3 12:10:31 CK (creatine kinase), total, serum 2024 025 [facility], [address] [place] [address], [place], [address], 5 09:25:48 ESR (erythrocy te sedimentat ion rate), blood 2024 025 [facility], [address] [place] [address], [address], 5 09:25:48 CRP, high sensitivit y, serum or plasma 2024 025 [facility], [address] [place] [address], [place], [address], 5 09:25:48 Referral vascular surgeon referral - worsening claudicati on both legs pt is known to you 2023 024 [facility], [address] [facility], [address], [place], [address], 4 13:30:40 Procedures None recorded. Surgeries None recorded. Imaging MRI, brain, w/o contrast 2022 023 [facility], [address] [place], [address], 3 08:55:10 US, echocardio gram, transthora cic, complete, w/ color flow 2022 023 [facility], [address] [place], [address], 3 11:32:19 Medication Orders ropinirole 0.5 mg tablet 2022 023 [id number], [address] [place] [address], [id number], 3 10:16:09 labetalol 100 mg tablet 2022 023 [id number], [address] [place], [place], [id number], 10:20:25 pregabalin 50 mg capsule 2024 025 [facility] #[id number], [address] [place], [place], [id number], 09:20:33 Patient TargetsNo targets recorded. Patient Instructions Encounter Date Encounter Id Patient Instructions Last Modified By Organization Details Last Modified Time 06/19/2023 [id number] Peripheral Arterial Disease (PAD): Care Instructions Not available 06/19/2023 10:22:30 aortic valve stenosis: care instructions Not available 06/19/2023 10:22:30 12/15/2023 [id number] Peripheral Arterial Disease (PAD): Care Instructions Not available 12/15/2023 09:18:55 04/19/2024 [id number] carotid stenosis : care instructions Not available 04/19/2024 09:20:26 high blood pressure: care instructions Not available 04/19/2024 09:20:26 learning about high blood pressure Not available 04/19/2024 09:20:26 aortic valve stenosis: care instructions Not available 04/19/2024 09:20:26 Reason for Referral Vascular Surgeon Referral fo r Intermittent claudication worsening claudication both legs pt is known to you Referring Physician: Patrice Velasquez, Internal Medicine, Encounter Date: 06/19/2023 Results Created Date Observation Date Name Description Value Unit Range Abnormal Flag Note LastModifiedBy Organization Detail LastModifiedTime 03/03/2003/03/2023 XR, chest , 2 view No observ ation record ed. [facility] [address] [facility], [place], [address], 03/05/2023 20:28:14 04/24/19 24 04/24/2023 XR, chest , 2 view No observ ation record ed. [email or web address] [address], [address], 04/24/2023 17:08:41 05/02/19 24 05/02/2023 US, echoc ardio gram, trans thora cic, compl ete, w/ color flow No observ ation record ed. [email or web address] [facility] (Pulmonary Lab) [address] [place], [address], 05/03/2023 09:59:36 06/13/19 24 06/13/2023 MRI, brain , w/o contr ast No observ ation record ed. [facility] [address] [place], [address], 06/15/2023 23:07:15 Result Notes None recorded. 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 Not Available [employer] 2 12:47:34 Abdomina l aortic aneurysm 021681486 Active 2017 aortic & iliac stent Not Available [employer] 2 12:47:34 Gastriti s 7083452 Active 2017 Not Available [facility] 2 12:47:34 Esophagi tis 99424029 Active 2017 Not Available [facility] 2 12:47:34 Gastroes ophageal reflux disease 224228414 Completed 201712/08/2017 Patrice Velasquez DO [address] [place], [address], [facility] 8 10:29:23 Hiatal hernia 69273407 Active 2017 Not Available [facility] 2 12:47:34 Disorder of carotid artery 137054006 Active 2017 Not Available [facility] 2 12:47:34 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 Not Available [facility] 2 12:47:34 Left bundle branch block 65547562 Active 2017 Not Available [facility] 2 12:47:34 Coronary arterios clerosis 55379647 Active 2017 Not Available [facility] 2 12:47:34 Rectal hemorrha ge 41433430 Active 2017 Not Available [facility] 2 12:47:34 Acute pulmonar y edema 09865643 Completed 201805/30/2022 Patrice Velasquez DO [address] [place], [address], [facility] 3 10:16:38 ECG: sinus arrhythm ia 366214892 Active 2018 Not Available [facility] 2 12:47:34 [facility]ia l hyperten artemio 29462431 Active 2018 Not Available [facility] 2 12:47:34 Systolic murmur 51070976 Active 2018 Not Available [facility] 2 12:47:34 Idiopath ic peripher al neuropat hy 87111097 Active 2020 Not Available [facility] 2 12:47:34 Edema of lower extremit y 831889737 Active 2020 Not Available [facility] 2 12:47:34 Aortic valve stenosis 11414922 Active 2020 Not Available [facility] 2 12:47:34 Night sweats 59270843 Active 2021 KHUSHBOO MATTHEWS [address] [place] [address], [address], [facility] 2 10:31:22 Lyme disease 20523132 Active 2022 Patrice Velasquez, DO [address] [place] [address], [address], [facility] 3 17:37:48 Lymphade nopathy 64868866 Active 2022 Patrice Velasquez, DO [address] [place] [address], [address], [facility] 3 17:38:06 Multiple joint pain 66024401 Active 2022 Patrice Velasquez DO [address] [place] [address], [address], [facility] 3 17:39:21 Memory impairme nt 765040784 Active 2022 Patrice Velasquez DO [address] [place] [address], [address], [facility] 3 12:02:08 Cough 13708780 Active 2023 KHUSHBOO MATTHEWS [address] [place] [address], [address], [facility] 4 10:08:01 Acute bronchit is 59150714 Active 2023 KHUSHBOO MATTHEWS [address] [place] [address], [address], [facility] 4 17:08:53 Nausea 965557362 Active 2023 KHUSHBOO MATTHEWS [address] [place] [address], [address], [facility] 4 16:47:49 Chronic renal insuffic iency 859245111 Active 2023 Patrice Velasquez DO [address] [place], [address], [facility] 4 10:15:20 Intermit tent rishi brown 95731452 Active 2023 Patrice Velasquez, DO [address] [place], [address], [facility] 4 10:16:55 Carotid atherosc lerosis 729566992 Active 2024 Patrice Velasquez, DO [address] [place] [address], [address], [facility] 5 09:12:17 Statin-i nduced myopathy Active 2024 Patrice Velasquez, DO [address] [place] [address], [address], [facility] 5 09:14:10 Pain in multiple muscles Active 2024 Patrice Velasquez, DO [address] [place] [address], [address], [facility] 5 09:23:28 Problem Notes None recorded. Procedures Surgical History None recorded. Imaging Results Imaging Date Name Status LastModified by Organiz ation Details LastModified Time 03/03/2023 XR, chest, 2 view completed [address] [facility] [address] [place], [address], 03/05/2023 20:28:14 04/24/2023 XR, chest, 2 view completed [facility] [address] [place], [address], 04/24/2023 17:08:41 05/02/2023 US, echocardiogra m, transthoracic , complete, w/ color flow completed [email or web address] (P[facility] Lab) [address] [place], [address], 05/03/2023 09:59:36 06/13/2023 MRI, brain, w/o contrast completed [address] [place], [address], 06/15/2023 23:07:15 Procedure Notes None recorded. Medical Equipment None Reported. Allergies Allergen ID Allergen Name Allergen Category Reaction Reaction Severity Criticality Documentation Date Start Date Code Code System Note Provider Name and Address Organization Details Recorded Time 2320 lisinopri l medicatio n cough Not available Not available 12/08/2017 39215 RxNorm Patrice Velasquez, DO [address] [place], [address], [facility] 8 10:28:09 4258 Iodinated contrast media (substanc e) medicatio n Not available Not available Not available 03/31/2020 43225 2003 SNOMED Marce Fernandez [facility] 1 09:32:59 8706 rosuvasta tin medicatio n myalgias (muscle pain) Not available [facility] 04/19/2024 62224 2 RxNorm Patrice Velasquez, DO [address] [place], [address], [facility] 5 09:08:02 Medications Name Sig Start Date Stop Date Status Note LastModified by Organization Details LastModified Time amoxicillin 500 mg capsule 12/08 completed Not Available Not Available Not Available carvedilol 6.25 mg tablet Take 0.5 tablets every day by oral route for 90 days. 02/06 completed Not Available Not Available Not Available doxycycline hyclate 100 mg capsule TAKE 1 CAPSULE BY MOUTH TWICE DAILY FOR 10 DAYS 06/18 completed Not Available Not Available Not Available ropinirole 1 mg tablet TK 1 T PO QD HS 02/15 completed Not Available Not Available Not Available cetirizine 10 mg tablet TAKE 10 MG BY MOUTH 12 HOURS BEFORE AND 2 HOURS BEFORE PROCEDURE active Not Available Not Available No t Available valacyclovi r 1 gram tablet Take 1 tablet every 12 hours by oral route for 5 days. 11/05 completed Not Available Not Available Not Available hydrocodone 5 mg-acetamin ophen 325 mg tablet TAKE 1 TABLET BY MOUTH EVERY 6 HOURS NEEDED 02/15 completed Not Available Not Available Not Available methylpredn isolone 32 mg tablet TAKE 32MG BY MOUTH 12 HOURS BEFORE AND 2 HOURS BEFORE PROCEDURE 12/14 completed Not Available Not Available Not Available methylpredn isolone 4 mg tablet take 8 tablets at 8:30 PM & 8 tablets at 6:30AM 06/15 completed Not Available Not Available Not Available valacyclovi r 500 mg tablet TAKE 1 TABLET BY MOUTH THREE TIMES DAILY FOR 7 DAYS 11/05 completed Not Available Not Available Not Available triamcinolo ne acetonide 0.1 % topical cream APPLY TO AFFECTED AREA ON LEFT FOOT TWICE DAILY FOR 2 WEEKS. NOT FOR FACE. active Not Available Not Available No t Available Vitamin C 1,000 mg tablet Take by oral route. active Not Available Not Available No t Available erythromyci n 5 mg/gram (0.5 %) eye ointment APPLY 1 CM RIBBON INTO THE LOWER CONJUNCTI ALICIA SAC(S) IN THE AFFECTED EYE(S) BY OPHTHALMI C ROUTE 3 TIMES PER DAY 08/05 completed Not Available Not Available Not Available ropinirole 0.5 mg tablet TAKE 1 AND 1/2 TABLETS BY MOUTH 1 TIME IN THE EVENING 2023 active Not Available Not Available Not Avai lable clotrimazol e-betametha sone 1 %-0.05 % topical cream 12/08 completed Not Available Not Available Not Available lisinopril 10 mg tablet Take 1 tablet every day by oral route for 30 days. 12/08 completed Not Available Not Available Not Available losartan 25 mg tablet TAKE 1 TABLET BY MOUTH DAILY. DISCONTIN UE VALSARTAN 06/18 completed Not Available Not Available Not Available betamethaso ne dipropionat e 0.05 % topical cream 11/05 completed Not Available Not Available Not Available mupirocin 2 % topical ointment Apply 1 applicati on 3 times a day by topical route as needed for 10 days. 01/21 completed Not Available Not Available Not Available furosemide 20 mg tablet TAKE 1 TABLET BY MOUTH EVERY DAY MAY TAKE AN ADDITIONA L DOSE FOR 3 DAYS WHEN WEIGHT EXCEEDS 2LBS 2023 active Not Available Not Available Not Avai lable Aspir-81 mg tablet,shanna yed release Take 1 tablet every day by oral route. active Not Available Not Available No t Available labetalol 100 mg tablet TAKE 1 TABLET BY MOUTH TWICE DAILY active Not Available Not Available No t Available betamethaso ne dipropionat e 0.05 % topical ointment APPLY A THIN LAYER TO THE AFFECTED AREA(S) BY TOPICAL ROUTE ONCE DAILY 11/05 completed Not Available Not Available Not Available ondansetron 4 mg disintegrat ing tablet DISSOLVE 1 TABLET ON THE TONGUE TWICE DAILY FOR 14 DAYS NEEDED FOR NAUSEA 06/18 completed Not Available Not Available Not Available fluticasone propionate 50 mcg/actuati on nasal spray,suspe nsion SHAKE LIQUID AND USE 1 SPRAY IN EACH NOSTRIL DAILY SHAKE WELL BEFORE USING active Not Available Not Available No t Available doxycycline hyclate 100 mg tablet Take 1 tablet twice a day by oral route for 1 day. 08/05 completed Not Available Not Available Not Available valsartan 40 mg tablet TAKE 1 TABLET BY MOUTH TWICE DAILY 05/30 completed Not Available Not Available Not Available rosuvastati n 5 mg tablet TAKE 1 TABLET BY MOUTH EVERY DAY 04/19 completed Not Available Not Available Not Available pregabalin 50 mg capsule Take 1 capsule 3 times a day by oral route for 30 days. 2024 active Not Available Not Available Not Avai lable chlorhexidi ne gluconate 0.12 % mouthwash DIP TOOTHBRUS H IN MOUTH RINSE AND USE FOR SITE OF CONCERN INSTRUCTE D BY PRESCRIBE R 06/18 completed Not Available Not Available Not Available Calcium 600 11/29 completed Not Available Not Available Not Available biotin 06/18 completed Not Available Not Available Not Available Benadryl 06/18 completed Not Available Not Available Not Available lactase prn 11/29 completed Not Available Not Available Not Available Vitamin D3 active Not Available Not Av ailable Not Available Centrum 11/29 completed Not Available Not Available Not Available mometasone 0.1 % topical solution APPLY TOPICALLY TO THE AFFECTED AREA DAILY FOR 7 DAYS APPLY IN A THIN LAYER TO THE AFFECTED SKIN AND. RUB IN GENTLY AND COMPLETEL Y active Not Available Not Available No t Available carvedilol phosphate ER 10 mg capsule,ext .[id number] r multiphase Take 1 capsule every day by oral route at bedtime for 30 days. 01/10 completed Not Available Not Available Not Available CoQ-10 active Not Available Not Availa ble Not Available B12 06/18 completed Not Available Not Available Not Available Probiotic active Not Available Not Wilma ilable Not Available alpha lipoic acid 200 mg capsule Take by oral route. active Not Available Not Available No t Available Tylenol 325 mg capsule Take 325 mg twice a day by oral route. 06/18 completed Not Available Not Available Not Available Vitals Date Recorded Body height Body mass index (BMI) Body weight Heart rate Oxygen saturation Oxygen saturation in Arterial blood by Pulse oximetry Systolic blood pressure Diastolic blood pressure Provider Name and Address Organization Details Last Updated DateTime 3 156.21 cm 28.9 kg/m2 29543.6 1 g 95 /min 98 % 98 % 134 mm[Hg] 72 mm[Hg] Patrice Velasquez, DO [address] [place], [address] 3 10:02:51 Date Recorded Body height Body mass index (BMI) Body weight Heart rate Oxygen saturation Oxygen saturation in Arterial blood by Pulse oximetry Systolic blood pressure Diastolic blood pressure Provider Name and Address Organization Details Last Updated DateTime 3 156.21 cm 27.9 kg/m2 70453.5 g 66 /min 99 % 99 % 162 mm[Hg] 60 mm[Hg] Vanna Headley [facility] 3 11:18:09 Date Recorded Body height Body mass index (BMI) Body weight Heart rate Oxygen saturation Oxygen saturation in Arterial blood by Pulse oximetry Systolic blood pressure Diastolic blood pressure Provider Name and Address Organization Details Last Updated DateTime 4 156.21 cm 29 kg/m2 68214.6 9 g 68 /min 98 % 98 % 142 mm[Hg] 92 mm[Hg] Shelli Mcgraw [facility] 4 10:04:43 Date Recorded Body height Body mass index (BMI) Body weight Systolic blood pressure Diastolic blood pressure Provider Name and Address Organization Details Last Updated DateTime 12/15/2023 156.21 cm 28.4 kg/m2 98690.63 g 130 mm[Hg] 62 mm[Hg] Ely Abdi [facility] 4 09:03:59 Date Recorded Body height Body mass index (BMI) Body weight Oxygen saturation Oxygen saturation in Arterial blood by Pulse oximetry Heart rate Systolic blood pressure Diastolic blood pressure Provider Name and Address Organization Details Last Updated DateTime 5 156.21 cm 28.4 kg/m2 50012.6 3 g 98 % 98 % 68 /min 124 mm[Hg] 80 mm[Hg] Ely Storeymond [facility] 5 09:04:30 Social History Question Answer Notes LastModified by Organizat ion Details LastModified Time Tobacco Smoking Status Never Smoker Not Available [facility] 01/21/2020 03:36:24 What Was The Date Of Your Most Recent Tobacco Screening? 04/19/2024 [email or web address] Information not available 04/19/2024 Do You Or Have You Ever Used Any Other Forms Of Tobacco Or Nicotine? No Information not available 08/20/2021 Sex: Unknown Functional Status None recorded. Mental Status None recorded. Family History Nothing Reported. Medical History No medical history recorded. Gynecological HistoryNo gynecological history recorded. Obstetrics History GPAL:G 0 P 0 0 0 0 Immunizations Vaccine Type Date Status Note Provider Nam e and Address Organization Details Recorded Time COVID-19, mRNA, LNP-S, PF, 30 mcg/0.3 mL dose 07/29/2020 completed Not Available [facility] 2 19:46:08 COVID-19, mRNA, LNP-S, PF, 30 mcg/0.3 mL dose 08/20/2020 completed Not Available [facility] 2 19:46:08 COVID-19, mRNA, LNP-S, PF, 30 mcg/0.3 mL dose 04/06/2021 completed Not Available [facility] 2 19:46:08 COVID-19, mRNA, LNP-S, PF, 30 mcg/0.3 mL dose 08/23/2021 completed Marce ang [facility] 08/24/2021 13:33:30 Past Encounters Encounter ID Performer Location Encounter Start Date Encounter Closed Date Diagnosis/Indication Diagnosis SNOMED-CT Code Diagnosis ICD10 Code Diagnosis Note [id number] DO [facility] [address] [facility],[place] [address] 12/08/2017 09:59:21 12/08/2017 14:03:37 Impaired fasting glycemia 626311591 R73.01 a1c is good at 5.5 no issues Hypertensive disorder 38 159656 I10 bp are reviewed and are quite stable and pt tolerates taking carvedilol Diverticulitis 600754203 K57.92 stable as long as she eats right Abdominal aortic aneurysm 660118510 I71.4 just had an ultrasound and is doing ok per pt as specialist did not send report reviewed consult Hearing disorder 2191019 05 H90.3 will refer rfor hearing aid [id number] Patrice Velasquez DO [facility] [address] [facility], [facility] [place] [address] 03/09/2018 14:54:32 03/09/2018 16:00:06 Rectal hemorrhage 14795701 K62.5 needs to have a colonoscop y ; needs to have lab work to [facility] for anemia Peripheral vascular disease 893726101 I73.9 getting doppler done for blood flow Coronary arteriosclerosis 00359870 I25.10 Hypertensive disorder 38 691217 I10 bp are reviewed and are quite stable and pt tolerates taking carvedilol [id number] Patrice Velasquez DO [facility] [address] [facility] [place], [employer] [facility] [address] 04/03/2018 15:39:06 04/03/2018 16:47:28 Rectal hemorrhage 88444901 K62.5 colonoscop y has been deferred by pt and GI told if she bleeds agian they will scope her follow cbc on a routine basis Peripheral neuropathic pain 966076929 M79.2 will work up as if this is a radicular problem from a lumbar source Hypertensive disorder 38 419265 I10 bp are reviewed and are quite stable and pt tolerates taking carvedilol Patrice Velasquez DO [facility] Internal Medicine [address] [facility] [place], [facility] [place] [address] 07/30/2018 11:22:15 07/30/2018 12:17:50 Hypertensive disorder 38426208 I10 bp are reviewed and are quite stable and pt tolerates taking carvedilol Impaired f asting glycemia 953979611 R73.01 a1c is good at 5.7 no issues Peripheral vascular disease 691889444 I73.9 getting doppler done for blood flow Restless legs 50204867 G 25.81 will try ropinirole low dose and then work our way up Actinic keratosis 585275 007 L57.0 has a new lesion on her right zygoma area just suborbital to the right [id number] Patrice Velasquez DO [facility] Internal Medicine [address] [facility],[place] [facility] [place] [address] 01/07/2019 11:21:44 01/07/2019 12:03:48 Acute pulmonary edema 95025431 J81.0 she is currently stable and taking her meds from the hospital had lost 10lbs of water weight Coronary arteriosclerosis 13957563 I25.10 here and is stable with no evidence Hypertensive disorder 38 640867 I10 bp are reviewed and are quite stable and pt tolerates taking carvedilol no evidence of elevated bp during the days prior to her admission relates is stopping on her own the carvedilol at night due to her feeling lighteaded and loopy took the evening dose away Essential hypertension 54101919 I10 [id number] June ZAIN Abebe [facility] Internal Medicine [address] [facility],[place] [address] 01/11/2019 10:23:07 01/11/2019 11:33:08 Essential hypertension 32438708 I10 improved after recheck but given possible episodes of orthostasi s will d/c the carvedilol and continue valsartan only with BP recheck as scheduled 01/22/19 Edema of foot 003971472 R60.0 resolved ECG: sinus arrhythmia 42 9924761 R94.31 Left bundl e branch block 56294030 I44.7 longstandi ng Fatigue 70062248 R53.83 and weakness/s weating/li ghtheaded after taking carvedilol ? orthostati c will d/c carvedilol and f/u as scheduled for bp recheck call if sx change or worsen Systolic murmur 96848471 R01.1 has known aortic stenosis per cardiac note [id number] Patrice Velasquez [facility] Internal Medicine [address] [facility],[place] [address] 01/21/2019 09:49:18 01/21/2019 10:26:13 Essential hypertension 26338008 I10 bp is currently doing ok overall had cardio appt and they have sched an echo Impaired f asting glycemia 617045193 R73.01 a1c is good at 5.7 no issues Osteopenia 117354642 M85 .80 pt will order Atypical chest pain 1025 62710 R07.89 has been followed by cardiology understand s if recurs to go to ER will cont carvedilol and is otherwise stable [id number] Patrice Velasquez DO [facility] Internal Medicine [address] [facility],[place] [address] 04/29/2019 10:03:53 04/29/2019 12:03:26 Essential hypertension 74454313 I10 bp is currently doing ok overall had cardio appt and they have sched an echo Impaired f asting glycemia 583218929 R73.01 a1c is good at 5.7 no issues Herpes zoster 1464089 B0 2.9 will tx with valacyc 70574 KHUSHBOO MATTHEWS [facility] Internal Medicine [address] [facility],[place] [address] 06/28/2019 13:40:48 06/28/2019 14:18:12 Tick bite 37893002 W57.XXXA will treat with doxy 100 mg BID prophylact ically if the patient has any symptoms after about 2 to 6 weeks including the above mentioned she is instructed to call the office so we may test her for lyme and treat her appropriat ton pt understand s this [id number] KHUSHBOO MATTHEWS [facility] Internal Medicine [address] [facility],[place] [address] 08/06/2019 11:30:13 08/06/2019 12:34:01 Irritant contact dermatitis 128827423 L24.9 will cover for both a shingles and a contact dermatitis [id number] Patrice Velasquez DO [facility] Internal Medicine [address] [facility],[place] [address] 11/06/2019 09:29:00 11/06/2019 11:20:35 Essential hypertension 65704632 I10 bp is currently doing ok overall had cardio appt and they have sched an echo Impaired f asting glycemia 199798538 R73.01 a1c is good at 5.6 no issues Hypertensive disorder 38 873998 I10 bp are reviewed and are quite stable and pt tolerates taking carvedilol no evidence of elevated bp during the days prior to her admission relates is stopping on her own the carvedilol at night due to her feeling lighteaded and loopy took the evening dose away Coronary arteriosclerosis 17461512 I25.10 here and is stable with no evidence LDL 73 Multiple joint pain 3567 8005 M25.50 has had multiple tick bites Restless legs 10209047 G 25.81 will try ropinirole low dose and then work our way up [id number] Patrice Velasquez DO [facility] Internal Medicine [address] [facility],[place] [address] 02/07/2020 10:28:56 02/07/2020 12:32:52 Essential hypertension 69814728 I10 bp is currently doing ok overall had cardio appt phone call nothing came of it Impaired f asting glycemia 014608810 R73.01 a1c is good at 5.6 no issues Neuropathy of lower limb 230860572 G57.90 we will check b12 etc Abdominal aortic aneurysm 859873835 I71.4 an ultrasound is ordered for march?? pt will find out and has been noting a thumping feeling when sitting in a certain position i strongly feel she needs to hav e this repair visualized pt will call vascular to make sure this will be done if not then we will. [id number] Patrice Velasquez DO [facility] Internal Medicine [address] [facility],[place] [address] 07/15/2020 09:41:19 07/15/2020 10:15:18 Essential hypertension 46874533 I10 bp is currently doing ok overall had cardio appt phone call nothing came of it Impaired f asting glycemia 962119322 R73.01 a1c is good at 5.6 no issues Peripheral vascular disease 896137449 I73.9 getting doppler done for blood flow has follow up in the fall Idiopathic peripheral neuropathy 40513487 G60.9 currently is stable with her new supplement Edema of l ower extremity 017510841 R60.0 this is a problem and is an issue relates has had to take extra furosemid on occ so the new order will be she will take a extra dose of furosemide for three days in a row will adjust her RX [id number] Patrice Velasquez DO [facility] Internal Medicine [address] [facility],[place] [address] 02/15/2021 10:12:29 02/15/2021 11:30:07 Essential hypertension 33362853 I10 bp is currently doing ok overall had cardio appt phone call nothing came of itsee below Hypertensive disorder 38 576093 I10 bp are reviewed and are quite stable and pt tolerates taking carvedilol no evidence of elevated bp during the days prior to her admission relates is stopping on her own the carvedilol at night due to her feeling lighteaded and loopy took the evening dose away and has been stable Impaired f asting glycemia 921652731 R73.01 a1c is good at 5.9 no issues Acute pulmonary edema 40 598090 J81.0 no longer an issue as she has been on a very strict salt restrictio n and water/ no evid of vol overloadwg t has been stabel with use of the diuretic and keeping below 155 Idiopathic peripheral neuropathy 22916227 G60.9 currently is stable with her new supplement Systolic murmur 50440298 R01.1 see below Aortic valve stenosis 60 012606 I35.0 moderate will be getting another echo in 1 year Liver enzy mes level above reference range 922058344 R74.01 must consider the rosuvastat in as the culprit as there is no evid of vol overload [id number] Patrice Velasquez DO [facility] Internal Medicine [address] [facility],[place] [address] 08/20/2021 09:41:53 08/20/2021 10:56:14 Essential hypertension 43935241 I10 bp is currently doing ok overall and is very pleasedsee below Hypertensive disorder 38 500911 I10 bp are reviewed and are quite stable and pt tolerates taking carvedilol no evidence of elevated bp during the days prior to her admission relates is stopping on her own the carvedilol due to her feeling lighteaded and has been stable Impaired f asting glycemia 526124063 R73.01 a1c is good at 6.0 no issues Advance care planning 71 6629281 Z71.89 done Active or passive immunization 152299325 Z23 patient advised of due vaccines (tdap, pneu 13 & 23, shingles) Idiopathic peripheral neuropathy 78313503 G60.9 currently is stable with her new supplement Peripheral vascular disease 446565289 I73.9 markedly improved with the massage and taping Acute pulmonary edema 40 782484 J81.0 no longer an issue as she has been on a very strict salt restrictio n and water/ no evid of vol overloadwg t has been stabel with use of the diuretic and keeping below 155 [id number] Patrice Velasquez [facility] Internal Medicine [address] [facility] [place] [address] 11/29/2021 10:41:09 11/29/2021 11:33:31 Night sweats 68662089 R61 after review of her meds and supp we think it is the biotin as there is a phase 4 clinical trial showing this in 60 yr females on biotin for 1-2 yrsshe will stop the biotina nd see also she will have her cut down the thiamine as she is taking 12,500% of the daily allotment Coronary arteriosclerosis 87764021 I25.10 here and is stable with no evidence LDL 73 Edema of l ower extremity 360641054 R60.0 this is a problem and is an issue relates has had to take extra furosemid on occ so the new order will be she will take a extra dose of furosemide for three days in a row will adjust her RX Essential hypertension 72285127 I10 bp is currently doing ok overall and is very pleasedsee below Hypertensive disorder 38 920623 I10 bp are reviewed and are quite stable and pt tolerates taking carvedilol no evidence of elevated bp during the days prior to her admission relates is stopping on her own the carvedilol due to her feeling lighteaded and has been stable Impaired f asting glycemia 382566431 R73.01 a1c is good at 6.0 no issues [id number] Patrice Velasquez [facility] Internal Medicine [address] [facility] [place] [address] 05/30/2022 09:56:04 05/30/2022 13:44:40 Essential hypertension 61114808 I10 bp is currently doing ok overall and is very pleasedsee below Hypertensive disorder 38 565559 I10 on losartan and this is giving her raspy voice etcwe will move to labetolol low dose and try this Impaired f asting glycemia 771670711 R73.01 a1c is good at 6.0 no issues Acute pulmonary edema 40 630613 J81.0 no longer an issue as she has been on a very strict salt restrictio n and water/ no evid of vol overloadwg t has been stabel with use of the diuretic and keeping below 155 Peripheral vascular disease 555808749 I73.9 markedly improved with the massage and taping Advance care planning 71 2274961 Z71.89 done Restless legs 98331785 G 25.81 will try ropinirole low dose and then work our way up [id number] Patrice Velasquez [facility] Internal Medicine [address] [facility],[place] [address] 11/30/2022 11:06:53 11/30/2022 12:12:01 Aortic valve stenosis 14186886 I35.0 moderate will be getting another echo Essential hypertension 14030860 I10 bp is currently doing ok overall and is very pleasedsee below Coronary arteriosclerosis 45108912 I25.10 here and is stable with no evidence LDL 73 Impaired f asting glycemia 356251382 R73.01 a1c is great at 5.5 no issues Memory impairment 292809 006 R41.3 we will look into this with her starting some lab and an mri brain [id number] Patrice Velasquez [facility] Internal Medicine [address] [facility],[place] [employer] [place] [address] 06/19/2023 09:56:33 06/19/2023 10:44:46 Essential hypertension 69503325 I10 bp is currently doing ok overall and is very pleasedsee below Peripheral vascular disease 355515404 I73.9 having pain in her legs Intermitte nt claudication 75343148 I73.9 has been having worsening symptoms now involving both legs will need to have this re eval Aortic valve stenosis 60 550472 I35.0 getting yearly echo via cardiolo [id number] Patrice Velasquez [facility] Internal Medicine [address] [facility] [place] [address] [address] 12/15/2023 08:51:51 12/15/2023 10:25:18 Depression screening 400667567 Z13.31 neg Essential hypertension 33378583 I10 bp is currently doing ok overall and is very pleasedsee below Intermitte nt claudication 34112693 I73.9 doing fantastic after post bypass Peripheral vascular disease 995695247 I73.9 doing fantastic will be considerin g the surgery for the right leg still has some post surg swellling on the left [id number] Patrice Velasquez, [facility] Internal Medicine [address] [facility] [address],[place] [address] 04/19/2024 08:56:11 04/19/2024 11:34:24 Coronary arteriosclerosis 48582945 I25.10 here and is stable with no evidence LDL 73 Chronic re nal insufficiency 077625141 N18.9 Aortic valve stenosis 60 866991 I35.0 getting yearly echo via cardiolo Abdominal aortic aneurysm 850221461 I71.40 Carotid atherosclerosis 483760327 I65.29 stable and will follow Essential hypertension 75414583 I10 bp is currently doing ok overall and is very pleasedsee below Pain in mu ltiple muscles 0079738392 M79.10 needs lab Idiopathic peripheral neuropathy 99827454 G60.9 having ongoing burning inher feet Health Concerns Section Related Observation LastModified by Organization Detai ls LastModified Time None Recorded Concern Status LastModified by Organization Details LastModified Time None Recorded Advance Directives Directive None Recorded Payers Encounter Date Sequence Insurance Name Policy Number Policy Sharp Covered Member ID Sharp Member ID Guarantor Name 05/30/2022 1 [place]IC[place]: [facility] [employer] [id number] 2 [employer] 05/30/2022 2 [facility] Rohan Painting [id number] Rohan [employer]ting 11/30/2022 1 [place] [facility] Rohan [employer] [id number] Rohan [employer] 11/30/2022 2 [facility] Rohan [employer]ting [id number] Rohan Painting 06/19/2023 1 [place]: [facility] Rohan [employer] [id number] 2 Rohan [employer]ting 06/19/2023 2 [facility] Rohan [employer]ting [id number] Rohan [employer]ting 12/15/2023 1 [place] [facility] [employer] [id number] 2 [employer] 12/15/2023 2 [facility] Rohan [employer]ting [id number] Rohan [employer]ting 04/19/2024 1 [place] [facility] Rohan [employer] [id number] 2 Roh[employer] 04/19/2024 2 [facility] [employer] [id number] [employer] Notes Date Note Type Note Provider Name and Address Organization Details Recorded Time 3 text/htm l The patient denies recent falls or recurrent falls. Denies instability, weakness, abnormal gait, or difficulties with movement. The patient wears correct, supportive shoes and is not otherwise severely visually impaired. The patient is full weight bearing and if using the assistance of a cane or walker feels supported and stable with the use of such devices. All medical conditions have been taken into account that may pose a risk for the patient for falls. Home manjinder, carpets and/or rugs do not pose a challenge for the patient. The patient has been educated about the use of vitamin D supplementation for bone health and prevention of hypotensive episodes that may increase risk for fall. All question and concerns were answered to the patient's satisfaction. here for rechk and is ffeeling gooddoing great now and is eating so much betterwgt [id number] is 5.9 and rest of lab is greatno cp no sob Patrice Velasquez, DO [address] [facility], [place], [address], [facility] 05/30/2022 10:25:10 3 text/htm l here for [id number] is 5.5 doing well eating better and lost 6 lbsfeeling okno cp no sob unless she is exerting such as weeding vacuum stairs and this has worsened a little bitrelates she has noted a bit of trouble with her memorynoted difficulty balancing her checkbook for the very first time Patrice Velasquez, DO [address] [place], [address], [facility] Internal Medicine 11/30/2022 12:09:15 4 text/htm l Care Management - HypertensionReported bypatient.Self Care:not under emotional stress Severity:symptoms are improving; does not interfere with daily activities Associated Symptoms:no dizziness; no lightheadedness; no chest pain; no shortness of breath; no palpitations; no edema; no calf muscle cramps; no blurred vision; no confusion; no headaches; no fatigue here for rechk and is doing ok overall relates that she is very busy and not checking her bp much Patrice Velasquez, DO [address] [place] [address], [phone], [facility] Internal Medicine 06/19/2023 10:24:30 4 text/htm l Care Management - HypertensionReported bypatient.Self Care:not under emotional stress; recent hospitalization/ER visit? yes Severity:symptoms are improving; does not interfere with daily activities Associated Symptoms:no dizziness; no lightheadedness; no chest pain; no shortness of breath; no palpitations; no edema; no calf muscle cramps; no blurred vision; no confusion; no headaches; no fatigue doing well since the surgery on her leg bypassshe relates that she is now able to walk without painstates is coming [place] [facility] Patrice Velasquez, DO [address] [place] [address], [phone], [facility] Internal Medicine 12/15/2023 09:20:13 5 text/htm l Care Management - HypertensionReported bypatient.Self Care:not under emotional stress Severity:symptoms are improving; does not interfere with daily activities Associated Symptoms:no dizziness; no lightheadedness; no chest pain; no shortness of breath; no palpitations; no edema; no calf muscle cramps; no blurred vision; no confusion; no headaches; no fatigue relates that she is here for issuestates had to stop the statin due to fatigue and muscle painfeels much better now states that she did well since leg surgery relates that having pain in her thighs bilat having burning in her feet anne Patrice Velasquez, DO [address] [facility], [place], [address], [facility] 04/19/2024 09:25:26 OBGyn Episode No OBEpisode recorded.
[2024-04-24 14:04] LABS: Erythrocyte Sedimentation Rate 16 MM/HR (0-20)
[2024-04-26 12:28] LABS: CRP High Sensitivity 3.7 mg/L
== END 2024-04-24 10:43 | disposition home or self-care (01) ==
LOC: HO.MANLDS 10:42
PROVIDERS: Visit Provider Internal Medicine
DX: M79.10 Myalgia, unspecified site (principal)
CPT/HCPCS: 36415; 82550; 85652; 86141

== ENCOUNTER 2024-05-31 10:28 | Outpatient (REF) | payer MEDICARE, OTHER, SELFPAY ==
--- OUTSIDE RECORDS SUMMARY | 2024-05-31 11:52 | XMS_ITS | Continuity of Care Document ---
Author Organization [facility] Address [address] [place] [address]- Care Team Providers Care Echocardiograph Tech Name Role Phone Patrice Velasquez DO Primary Care Physician [phone] Encounter [facility] Date(s): 04/17/24 - 05/17/24 [facility] [address] [place] [address]- Encounter Type: Triage Allergies, Adverse Reactions, Alerts Substance Criticality Severity Reaction Reaction Severity Status isosorbide mononitrate Unable to assess criticality Persistent Severe unknown Active Glutens GI Active lisinopril COUGH Active shellfish 1 REDNESS AND SWEELING OF FACE Active Adhesive Bandage redness/swe llin g/itching Active Contrast Dye 2 Unable to assess criticality Persistent Severe chest tightness/hyper tension Active Latex 3 ITCHING AND BLISTERS Active Pollen congestion Active Peanuts [place] Soybean Active Strawberries GI Active Tomatoes GI UPSET Active Wheat GI Active Potatoes GI Active Other Environmental Allergy SEVERE RASH AND REDNESS FROM HEAD TO TOE hospital linen develops rash Active Carrots GI Active Rice GI Active Soy Products GI [...] Refills, Maintenance, 08/21/23 2:34:00 PM EDT, Tablet, [id number], Partial fill upon patient request if the [...] 0 Refills, Maintenance, 12/23/18 11:00:45 AMEDT, Tablet, [facility] 3 Start Date: 12/23/18 Stop Date: 01/22/19 Status: Ordered Quantity: 15.0 Unit: tablet Repeat number: 1 Flonase Allergy Relief 50 mcg/inh nasal spray 1 sprays = 50 mcg, Nares, Both, Daily, shake well before using, # 9.9 mL, 0 Refills, Maintenance, 08/21/23 2:34:00 PM EDT, [id number], Partial fill upon patient request if the [...] 11:00:43 AM EDT, Route to Pharmacy Electronically, [facility] 3 Start Date: 12/23/18 Stop Date: 01/22/19 Status: Ordered Quantity: 30.0 Unit: tablet Repeat number: 1 Medrol 32 mg oral tablet See Instructions, take 32mg by mouth 12 hrs before and 2 hrs before procedure, # 2 tablet, 0 Refills, Maintenance, 11/27/23 3:01:00 PM EDT, [id number], Partial fill upon patient request if the [...] Carotid artery stenosis, Right CEA 1 Confirmed 1998 Active Chronic cough Confirmed Active Coronary arteriosclerosis [...] Active Dehiscence of wound Confirmed Active 1in [place] 2Last scan??was 2022. 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 ??Dr. Salmeron recommend to check this??every few years due 2025. ?? 3taken off Plavix due to GI bleed history Social History Social History Type Response Smoking Status Never smoker; Tobacc o user in household: No entered on: 08/06/15 Sex Sex Representation Female (finding) Patient Care team information Care Team Personnel Name: Bonnie Vee RN Position: [facility] Charge Entry Specialist Member Role: Primary Care Nurse Name: Torie Ladd RN Position: [facility] RN Member Role: Primary Care Nurse Name: Patrice Velasquez DO Position: Reference Physician Member Role: PCP Address: [address] [place] [address] Internal Medicine [place], [place] [address] Telecom: Name: Marion Perera RN Position: [facility] RN Member Role: Primary Care Nurse Name: Eda Sanchez RN Position: [facility] RN Member Role: Primary Care Nurse Name: Jihan Duggan RN Position: [facility] RN Member Role: Primary Care Nurse Name: Lolly Martinez NP Position: [facility] PCO Associate Professional Member Role: Primary Care Nurse Address: [address] [place] [address]- Telecom: Name: Zaina Nayak RN Position: [facility] Charge Entry Specialist Member Role: Primary Care Nurse Name: Jessie Delgado RN Position: [facility] SN RN Member Role: Primary Care Nurse Name: Jenny Short RN Position: [facility] RN Member Role: Primary Care Nurse Name: Ellie Burgess RN Position: [facility] RN Member Role: Primary Care [...]
--- OUTSIDE RECORDS SUMMARY | 2024-05-31 11:52 | XMS_ITS | Data Portability ---
Author Organization [place] - [facility], Allergy Address [address] [facility] [address] [place] [id number] Care Team Providers Care Ghost Writer Name Role Phone MIKEY RANGEL Primary Care Provider Assessment Encounter Date Assessment Date Assessment LastModified by Organization Details LastModified Time 04/09/2024 04/09/2024 83 year old female presents for ear cleaning. Ears were meticulously cleaned bilaterally today with fine pics. Patient is encouraged to avoid Q-tips in her ears relative to packing the wax in tighter. She uses binaural amplification through [facility]. She has upcoming audiometric testing at [facility]. She will follow up with [...] Recorded Time Impacted cerumen of bilateral ears [id number] Active 2021 Impacted cerumen, bilateral ; Note: Date Diagnosed : 08/04/2021 2:25 PM (H61.23) Not Available [facility] 4 03:14:15 Problem Notes None recorded. Procedures Surgical History Date Name Laterality Status Provider Name and Address Organization Details Recorded Time 5 Cerumen removal without microscope bilat completed TRICIA GOMES PA-C [address] [facility],[address], [place], [address], [facility] - [facility] 04/09/2024 16:59:11 Imaging Results None recorded. [...] tablet,del ayed release active Medicatio n ID: [id number] Br and Name: Aspirin Low Dose Send [...] 40 mg tablet active Medicatio n ID: [id number] Br and Name: valsartan Send Method: E-Prescri [...] Updated DateTime 04/09/2024 157.48 cm 27.6 kg/m2 76543.45 g Saulsilvino Daniels [place] - [facility] 04/09/2024 13:16:59 Social History None recorded. Functional Status None recorded. Mental Status None recorded. Family History Nothing Reported. Medical History No medical history recorded. Gynecological HistoryNo gynecological history recorded. Obstetrics History GPAL:G 0 P 0 0 0 0 Past Encounters Encounter ID Performer Location Encounter Start Date Encounter Closed Date Diagnosis/Indication Diagnosis SNOMED-CT Code Diagnosis ICD10 Code Diagnosis Note [id number] JED REY MD [facility] [address] [id number] 04/09/2024 13:05:43 04/09/2024 13:32:59 Impacted cerumen of bilateral ears [id number] H61.23 Health Concerns Section Related Observation LastModified by Organization Detai ls LastModified Time None Recorded Concern Status LastModified by Organization Details LastModified Time None Recorded Advance Directives Directive None Recorded Payers Encounter Date Sequence Insurance Name Policy Number Policy Sharp Covered Member ID Sharp Member ID Guarantor Name 04/09/2024 1 MEDICARE B-[employer]: [employer] [id number] [employer] 04/09/2024 2 [facility] (MEDICARE SUPPLEMENT) [employer] [id number] [employer] Notes Date Note Type Note Provider Name and Address Organization Details Recorded Time 04/09/2024 text/html 83 year old alex garcia presents for ear cleaning. She uses binaural amplification through [facility]. She has upcoming audiometric testing at [facility]. JED REY MD [address] [place] [address], [place], [phone], [place] - [facility] 04/10/2024 10:23:48 OBGyn Episode No OBEpisode recorded.
--- OUTSIDE RECORDS SUMMARY | 2024-05-31 11:53 | XMS_ITS | Data Portability ---
Author Organization [facility], Home Service Address [address] [place] [address] Assessment Encounter Date Assessment Date Assessment LastModified by Organization Details LastModified Time 05/30/2022 05/30/2022 [address] [place] [address] (DIRECTOR OF CURRICULUM AND INSTRUCTION) MDM MODERATE MUST MEET 2 OUT OF [...] COVERED Not available 05/30/2022 10:20:41 06/19/2023 06/19/2023 [address] [place] [address] (DIRECTOR OF CURRICULUM AND INSTRUCTION) MDM MODERATE MUST MEET 2 OUT OF [...] COVERED Not available 06/19/2023 10:16:10 12/15/2023 12/15/2023 [address] [place] [address] (DIRECTOR OF CURRICULUM AND INSTRUCTION) MDM MODERATE MUST MEET 2 OUT OF [...] COVERED Not available 12/15/2023 09:16:17 04/19/2024 04/19/2024 [address] [place] [address] (DIRECTOR OF CURRICULUM AND INSTRUCTION) MDM HIGH MUST MEET 2 OUT OF [...] Organization Details Last Modified Time Details Appointments FOLLOW UP 15 2024 09:45A M DR RANGEL Not available Not available Not available Lab CK (creatine kinase), total, serum 2024 025 [facility], [address] [place] [address], [place], [address], 04/19/2024 09:25:48 ESR (erythroc yte sedimenta tion rate), blood 2024 025 [facility], [address] [place] [address], [place], [address], 04/25/2024 12:37:31 CRP, high sensitivi ty, serum or plasma 2024 025 [facility], [address] [place] [address], [place], [address], 04/29/2024 12:02:23 vitamin B12 + folate, serum or blood 2022 023 [facility], [address] [place] [address], [address], 11/30/2022 12:10:31 TSH, serum or plasma 2022 023 [facility], [address] [place] [address], [address], 11/30/2022 12:10:31 Referral vascular surgeon referral - worsening claudicat ion both legs pt is known to you 2023 024 [facility], [address], [facility] [address], [address], 06/19/2023 13:30:40 Procedures None recorded. Surgeries None recorded. Imaging MRI, brain, w/o contrast 2022 023 [facility], [address] [place], [address], 12/05/2022 08:55:10 US, echocardi ogram, transthor acic, complete, w/ color flow 2022 023 [facility], [address], [place], [address], 12/19/2022 11:32:19 Medication Orders pregabali n 50 mg capsule 2024 025 [id number], [address] [place] [address], [phone], 04/19/2024 09:20:33 ropinirol e 0.5 mg tablet 2022 023 [id number], [address] [place], [place], [id number], 05/30/2022 10:16:09 labetalol 100 mg tablet 2022 023 [facility], [address] [place], [place], [id number], 05/30/2022 10:20:25 Patient TargetsNo targets recorded. Patient Instructions Encounter Date Encounter Id Patient Instructions Last Modified By Organization Details Last Modified Time 06/19/2023 [id number] Peripheral Arterial Disease (PAD): Care Instructions Not available 06/19/2023 10:22:30 aortic valve stenosis: care instructions Not available 06/19/2023 10:22:30 12/15/2023 [id number] Peripheral Arterial Disease (PAD): Care Instructions Not available 12/15/2023 09:18:55 04/19/2024 [id number] carotid stenosis : care instructions Not available 04/19/2024 09:20:26 high blood pressure: care instructions Not available 04/19/2024 09:20:26 learning about high blood pressure Not available 04/19/2024 09:20:26 aortic valve stenosis: care instructions Not available 04/19/2024 09:20:26 Reason for Referral Vascular Surgeon Referral fo r Intermittent claudication worsening claudication both legs pt is known to you Referring Physician: Patrice Rangel, Internal Medicine, Encounter Date: 06/19/2023 Results Created Date Observation Date Name Description Value Unit Range Abnormal Flag Note LastModifiedBy Organization Detail LastModifiedTime 03/03/2003/03/2023 XR, chest , 2 view No observ ation record ed. [facility] [address] [facility], [place], [address], 03/05/2023 20:28:14 04/24/19 24 04/24/2023 XR, chest , 2 view No observ ation record ed. [email or web address] [facility] [address] [facility], [place], [address], 04/24/2023 17:08:41 05/02/19 24 05/02/2023 US, echoc ardio gram, trans thora cic, compl ete, w/ color flow No observ ation record ed. [email or web address] [facility] (Pulmonary Lab) [address] [place], [address], 05/03/2023 09:59:36 06/13/19 24 06/13/2023 MRI, brain , w/o contr ast No observ ation record ed. [facility] [address] [place], [address], 06/15/2023 23:07:15 Result Notes None recorded. Problems Name Problem SNOMED Code Status Onset Date Resolution Date Notes Provider Name and Address Organization Details Recorded Time Peripher al vascular disease 530274377 Active 2017 Not Available [facility] 2 12:47:34 Carotid artery stenosis 26796004 Active 2017 Not Available [facility] 2 12:47:34 Palpitat ions 48927138 Active 2017 Not Available [facility] 2 12:47:34 Restless legs 53263907 Active 2017 Not Available [facility] 2 12:47:34 Sesamoid itis 82269236 Active 2017 right Not Available [facility] 2 12:47:34 Impaired fasting glycemia 413682822 Active 2017 Not Available [facility] 2 12:47:34 Divertic ulitis 193111661 Active 2017 w/ divertic bleed Not Available [facility] 2 12:47:34 Abdomina l aortic aneurysm 377267200 Active 2017 aortic & iliac stent Not Available [facility] 2 12:47:34 Gastriti s 9446356 Active 2017 Not Available [facility] 2 12:47:34 Esophagi tis 16091642 Active 2017 Not Available [facility] 2 12:47:34 Gastroes ophageal reflux disease 221466277 Completed 201712/08/2017 Patrice AllyChanelle Rangel, DO [address] [place] [address], [address], [facility] 8 10:29:23 Hiatal hernia 36867868 Active 2017 Not Available [facility] 2 12:47:34 Disorder of carotid artery 424087845 Active 2017 Not Available [facility] 2 12:47:34 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 Not Available [facility] 2 12:47:34 Left bundle branch block 50206606 Active 2017 Not Available [facility] 2 12:47:34 Coronary arterios clerosis 12713901 Active 2017 Not Available [facility] 2 12:47:34 Rectal hemorrha ge 00501805 Active 2017 Not Available [facility] 2 12:47:34 Acute pulmonar y edema 63344396 Completed 201805/30/2022 Patrice Rangel, DO [address] [place] [address], [address], [facility] 3 10:16:38 ECG: sinus arrhythm ia 323699741 Active 2018 Not Available [facility] 2 12:47:34 Essentia l hyperten artemio 49558124 Active 2018 Not Available [facility] 2 12:47:34 Systolic murmur 99955840 Active 2018 Not Available [facility] 2 12:47:34 Idiopath ic peripher al neuropat hy 28244386 Active 2020 Not Available [facility] 2 12:47:34 Edema of lower extremit y 468470549 Active 2020 Not Available [facility] 2 12:47:34 Aortic valve stenosis 31402478 Active 2020 Not Available [facility] 2 12:47:34 Night sweats 55247463 Active 2021 KHUSHBOO MATTHEWS [address] [place], [address], [facility] 2 10:31:22 Lyme disease 95453392 Active 2022 Patrice Rangel, DO [address] [place] [address], [address], [facility] 3 17:37:48 Lymphade nopathy 58518601 Active 2022 Patrice Rangel DO [address] [place] [address], [address], [facility] 3 17:38:06 Multiple joint pain 47493021 Active 2022 Patrice Rangel DO [address] [place] [address], [address], [facility] 3 17:39:21 Memory impairme nt 479192104 Active 2022 Patrice Rangel DO [address] [place] [address], [address], [facility] 3 12:02:08 Cough 52387425 Active 2023 KHUSHBOO MATTHEWS [address] [place] [address], [address], [facility] 4 10:08:01 Acute bronchit is 37732276 Active 2023 KHUSHBOO MATTHEWS [address] [place] [address], [address], [facility] 4 17:08:53 Nausea 762813207 Active 2023 KHUSHBOO MATTHEWS [address] [place], [address], [facility] 4 16:47:49 Chronic renal insuffic iency 559251376 Active 2023 Patrice Nur Dalystefani, DO [address] [place], [address], [facility] 4 10:15:20 Intermit tent rishi brown 14440478 Active 2023 Patrice Nur Eva, DO [address] [place], [address], [facility] 4 10:16:55 Carotid atherosc lerosis 423339374 Active 2024 Patrice Nur Eva, DO [address] [place], [address], [facility] 5 09:12:17 Statin-i nduced myopathy Active 2024 Patrice Nur Eva, DO [address] [place] [address], [address], [facility] 5 09:14:10 Pain in multiple muscles Active 2024 Patrice Rangel, DO [address] [place] [address], [address], [facility] 5 09:23:28 Problem Notes None recorded. Procedures Surgical History None recorded. Imaging Results Imaging Date Name Status LastModified by Organiz ation Details LastModified Time 03/03/2023 XR, chest, 2 view completed [facility] [address] [place], [address], 03/05/2023 20:28:14 04/24/2023 XR, chest, 2 view completed [email or web address] [address] [facility], [place], [address], 04/24/2023 17:08:41 05/02/2023 US, echocardiogra m, transthoracic , complete, w/ color flow completed [email or web address] [place] [address] (Pulmonary Lab) [address] [place], [address], 05/03/2023 09:59:36 06/13/2023 MRI, brain, w/o contrast completed [facility] [address] [facility], [place], [address], 06/15/2023 23:07:15 Procedure Notes None recorded. Medical Equipment None Reported. Allergies Allergen ID Allergen Name Allergen Category Reaction Reaction Severity Criticality Documentation Date Start Date Code Code System Note Provider Name and Address Organization Details Recorded Time 2320 lisinopri l medicatio n cough Not available Not available 12/08/2017 81001 RxNorm Patrice Rangel, DO [address] [place], [address], [facility] 8 10:28:09 4258 Iodinated contrast media (substanc e) medicatio n Not available Not available Not available 03/31/2020 16581 2003 SNOMED Marce Fernandez [facility] Internal [facility] 1 09:32:59 8706 rosuvasta tin medicatio n myalgias (muscle pain) Not available [facility] 04/19/2024 79372 2 RxNorm Patrice Rangel, DO [address] [place], [address], [facility] 5 09:08:02 Medications Name Sig [...] Not Available Not Available No t Available Aspir-81 mg tablet,shanna yed release Take 1 [...] Available Not Available pregabalin 50 mg capsule TAKE 1 CAPSULE BY MOUTH THREE TIMES DAILY 2024 active Not Available Not Available Not [...] Available carvedilol phosphate ER 10 mg capsule,ext .[id number] r multiphase Take 1 capsule every day [...] Updated DateTime 3 156.21 cm 28.9 kg/m2 63904.6 1 g 95 /min 98 % 98 % 134 mm[Hg] 72 mm[Hg] Patrice Rangel, DO [address] [place], [address], [facility] 3 10:02:51 Date Recorded Body height Body mass index (BMI) Body weight Heart rate Oxygen saturation Oxygen saturation in Arterial blood by Pulse oximetry Systolic blood pressure Diastolic blood pressure Provider Name and Address Organization Details Last Updated DateTime 3 156.21 cm 27.9 kg/m2 72521.5 g 66 /min 99 % 99 % 162 mm[Hg] 60 mm[Hg] Vanna Headley [facility] 3 11:18:09 Date Recorded Body height Body mass index (BMI) Body weight Heart rate Oxygen saturation Oxygen saturation in Arterial blood by Pulse oximetry Systolic blood pressure Diastolic blood pressure Provider Name and Address Organization Details Last Updated DateTime 4 156.21 cm 29 kg/m2 23239.6 9 g 68 /min 98 % 98 % 142 mm[Hg] 92 mm[Hg] Shelli Mcgraw [facility] 4 10:04:43 Date Recorded Body height Body mass index (BMI) Body weight Systolic blood pressure Diastolic blood pressure Provider Name and Address Organization Details Last Updated DateTime 12/15/2023 156.21 cm 28.4 kg/m2 63527.63 g 130 mm[Hg] 62 mm[Hg] Ely Abdi [facility] 4 09:03:59 Date Recorded Body height Body mass index (BMI) Body weight Oxygen saturation Oxygen saturation in Arterial blood by Pulse oximetry Heart rate Systolic blood pressure Diastolic blood pressure Provider Name and Address Organization Details Last Updated DateTime 5 156.21 cm 28.4 kg/m2 81842.6 3 g 98 % 98 % 68 /min 124 mm[Hg] 80 mm[Hg] Ely Abdi [facility] 5 09:04:30 Social History Question Answer Notes LastModified by Organizat ion Details LastModified Time Tobacco Smoking Status Never Smoker Not Available [facility] 01/21/2020 03:36:24 What Was The Date Of Your Most Recent Tobacco Screening? 04/19/2024 [email or web address] Information not available 04/19/2024 Do You Or [...] mcg/0.3 mL dose 07/29/2020 completed Not Available [facility] 2 19:46:08 COVID-19, mRNA, LNP-S, PF, 30 mcg/0.3 mL dose 08/20/2020 completed Not Available [facility] 2 19:46:08 COVID-19, mRNA, LNP-S, PF, 30 mcg/0.3 mL dose 04/06/2021 completed Not Available [facility] 2 19:46:08 COVID-19, mRNA, LNP-S, PF, 30 mcg/0.3 mL dose 08/23/2021 completed Marce ang [place] [facility] 08/24/2021 13:33:30 Past Encounters Encounter ID Performer Location Encounter Start Date Encounter Closed Date Diagnosis/Indication Diagnosis SNOMED-CT Code Diagnosis ICD10 Code Diagnosis Note [id number] DO [facility] [address] [place] [address] 12/08/2017 09:59:21 12/08/2017 14:03:37 Impaired fasting glycemia 250264945 R73.01 a1c is good at 5.5 no issues Hypertensive disorder 38 139093 I10 bp are reviewed and are quite stable and pt tolerates taking carvedilol Diverticulitis 382027171 K57.92 stable as long as she eats right Abdominal aortic aneurysm 414155982 I71.4 just had an ultrasound and is doing ok per pt as specialist did not send report reviewed consult Hearing disorder 4864015 05 H90.3 will refer rfor hearing aid [id number] Patrice Rangel [facility] [address],[place] [address] 03/09/2018 14:54:32 03/09/2018 16:00:06 Rectal hemorrhage 36393952 K62.5 needs to have a colonoscop y ; needs to have lab work to [facility] for anemia Peripheral vascular disease 496120911 I73.9 getting doppler done for blood flow Coronary arteriosclerosis 22285398 I25.10 Hypertensive disorder 38 594458 I10 bp are reviewed and are quite stable and pt tolerates taking carvedilol [id number] Patrice Rangel [facility] [address],[place] [address] 04/03/2018 15:39:06 04/03/2018 16:47:28 Rectal hemorrhage 26756040 K62.5 colonoscop y has been deferred by pt and GI told if she bleeds agian they will scope her follow cbc on a routine basis Peripheral neuropathic pain 608380980 M79.2 will work up as if this is a radicular problem from a lumbar source Hypertensive disorder 38 980279 I10 bp are reviewed and are quite stable and pt tolerates taking carvedilol Patrice Rangel [facility] [address],[place] [address] 07/30/2018 11:22:15 07/30/2018 12:17:50 Hypertensive disorder 34892281 I10 bp are reviewed and are quite stable and pt tolerates taking carvedilol Impaired f asting glycemia 125224934 R73.01 a1c is good at 5.7 no issues Peripheral vascular disease 658286196 I73.9 getting doppler done for blood flow Restless legs 04057565 G 25.81 will try ropinirole low dose and then work our way up Actinic keratosis 356108 007 L57.0 has a new lesion on her right zygoma area just suborbital to the right [id number] Patrice Rangel DO [facility] [address],[place] [employer] [place] [address] 01/07/2019 11:21:44 01/07/2019 12:03:48 Acute pulmonary edema 91753444 J81.0 she is currently stable and taking her meds from the hospital had lost 10lbs of water weight Coronary arteriosclerosis 43638469 I25.10 here and is stable with no evidence Hypertensive disorder 38 530560 I10 bp are reviewed and are quite stable and pt tolerates taking carvedilol no evidence of elevated bp during the days prior to her admission relates is stopping on her own the carvedilol at night due to her feeling lighteaded and loopy took the evening dose away Essential hypertension 50524725 I10 [id number] June BRIANDA AbebeTYLER [facility] [address],[place] [employer] [place] [address] 01/11/2019 10:23:07 01/11/2019 11:33:08 Essential hypertension 67156807 I10 improved after recheck but given possible episodes of orthostasi s will d/c the carvedilol and continue valsartan only with BP recheck as scheduled 01/22/19 Edema of foot 528362953 R60.0 resolved ECG: sinus arrhythmia 42 6511257 R94.31 Left bundl e branch block 65423030 I44.7 longstandi ng Fatigue 08046186 R53.83 and weakness/s weating/li ghtheaded after taking carvedilol ? orthostati c will d/c carvedilol and f/u as scheduled for bp recheck call if sx change or worsen Systolic murmur 13642482 R01.1 has known aortic stenosis per cardiac note [id number] Patrice Rangel DO [facility] [address],[place] [address] 01/21/2019 09:49:18 01/21/2019 10:26:13 Essential hypertension 14271029 I10 bp is currently doing ok overall had cardio appt and they have sched an echo Impaired f asting glycemia 261578315 R73.01 a1c is good at 5.7 no issues Osteopenia 146315455 M85 .80 pt will order Atypical chest pain 1025 65708 R07.89 has been followed by cardiology understand s if recurs to go to ER will cont carvedilol and is otherwise stable [id number] Patrice Rangel DO [facility] [address],[place] [address] 04/29/2019 10:03:53 04/29/2019 12:03:26 Essential hypertension 00383486 I10 bp is currently doing ok overall had cardio appt and they have sched an echo Impaired f asting glycemia 414940149 R73.01 a1c is good at 5.7 no issues Herpes zoster 2597044 B0 2.9 will tx with valacyc [id number] KHUSHBOO MATTHEWS [facility] [address],[place] [address] 06/28/2019 13:40:48 06/28/2019 14:18:12 Tick bite 10304483 W57.XXXA will treat with doxy 100 mg BID prophylact ically if the patient has any symptoms after about 2 to 6 weeks including the above mentioned she is instructed to call the office so we may test her for lyme and treat her appropriat ton pt understand s this [id number] KHUSHBOO MATTHEWS [facility] [address] [facility] [address],[place] [address] 08/06/2019 11:30:13 08/06/2019 12:34:01 Irritant contact dermatitis 372669651 L24.9 will cover for both a shingles and a contact dermatitis [id number] Patrice Rangel DO [facility] [address],[place] [address] 11/06/2019 09:29:00 11/06/2019 11:20:35 Essential hypertension 08042737 I10 bp is currently doing ok overall had cardio appt and they have sched an echo Impaired f asting glycemia 447798955 R73.01 a1c is good at 5.6 no issues Hypertensive disorder 38 327367 I10 bp are reviewed and are quite stable and pt tolerates taking carvedilol no evidence of elevated bp during the days prior to her admission relates is stopping on her own the carvedilol at night due to her feeling lighteaded and loopy took the evening dose away Coronary arteriosclerosis 73812933 I25.10 here and is stable with no evidence LDL 73 Multiple joint pain 3567 8005 M25.50 has had multiple tick bites Restless legs 77893253 G 25.81 will try ropinirole low dose and then work our way up [id number] Patrice Rangel DO [facility] [address],[place] [address] 02/07/2020 10:28:56 02/07/2020 12:32:52 Essential hypertension 03035699 I10 bp is currently doing ok overall had cardio appt phone call nothing came of it Impaired f asting glycemia 571112006 R73.01 a1c is good at 5.6 no issues Neuropathy of lower limb 258952410 G57.90 we will check b12 etc Abdominal aortic aneurysm 947088077 I71.4 an ultrasound is ordered for march?? pt will find out and has been noting a thumping feeling when sitting in a certain position i strongly feel she needs to hav e this repair visualized pt will call vascular to make sure this will be done if not then we will. [id number] Patrice Rangel DO [facility] [address],[place] [address] 07/15/2020 09:41:19 07/15/2020 10:15:18 Essential hypertension 61253150 I10 bp is currently doing ok overall had cardio appt phone call nothing came of it Impaired f asting glycemia 501627909 R73.01 a1c is good at 5.6 no issues Peripheral vascular disease 285796829 I73.9 getting doppler done for blood flow has follow up in the fall Idiopathic peripheral neuropathy 63524567 G60.9 currently is stable with her new supplement Edema of l ower extremity 635832862 R60.0 this is a problem and is an issue relates has had to take extra furosemid on occ so the new order will be she will take a extra dose of furosemide for three days in a row will adjust her RX [id number] Patrice Rangel [facility] [address],[place] [address] 02/15/2021 10:12:29 02/15/2021 11:30:07 Essential hypertension 04702081 I10 bp is currently doing ok overall had cardio appt phone call nothing came of itsee below Hypertensive disorder 38 460497 I10 bp are reviewed and are quite stable and pt tolerates taking carvedilol no evidence of elevated bp during the days prior to her admission relates is stopping on her own the carvedilol at night due to her feeling lighteaded and loopy took the evening dose away and has been stable Impaired f asting glycemia 003478498 R73.01 a1c is good at 5.9 no issues Acute pulmonary edema 40 084449 J81.0 no longer an issue as she has been on a very strict salt restrictio n and water/ no evid of vol overloadwg t has been stabel with use of the diuretic and keeping below 155 Idiopathic peripheral neuropathy 14639320 G60.9 currently is stable with her new supplement Systolic murmur 11045989 R01.1 see below Aortic valve stenosis 60 966608 I35.0 moderate will be getting another echo in 1 year Liver enzy mes level above reference range 221894007 R74.01 must consider the rosuvastat in as the culprit as there is no evid of vol overload [id number] Patrice Rangel [facility] [address],[place] [address] 08/20/2021 09:41:53 08/20/2021 10:56:14 Essential hypertension 66706620 I10 bp is currently doing ok overall and is very pleasedsee below Hypertensive disorder 38 714205 I10 bp are reviewed and are quite stable and pt tolerates taking carvedilol no evidence of elevated bp during the days prior to her admission relates is stopping on her own the carvedilol due to her feeling lighteaded and has been stable Impaired f asting glycemia 781716865 R73.01 a1c is good at 6.0 no issues Advance care planning 71 2433641 Z71.89 done Active or passive immunization 633399880 Z23 patient advised of due vaccines (tdap, pneu 13 & 23, shingles) Idiopathic peripheral neuropathy 36624227 G60.9 currently is stable with her new supplement Peripheral vascular disease 395202798 I73.9 markedly improved with the massage and taping Acute pulmonary edema 40 053239 J81.0 no longer an issue as she has been on a very strict salt restrictio n and water/ no evid of vol overloadwg t has been stabel with use of the diuretic and keeping below 155 00089 Patrice Rangel [facility] Internal Medicine [address],[place] [address] 11/29/2021 10:41:09 11/29/2021 11:33:31 Night sweats 48482889 R61 after review of her meds and supp we think it is the biotin as there is a phase 4 clinical trial showing this in 61 yr females on biotin for 1-2 yrsshe will stop the biotina nd see also she will have her cut down the thiamine as she is taking 12,500% of the daily allotment Coronary arteriosclerosis 96283853 I25.10 here and is stable with no evidence LDL 73 Edema of l ower extremity 479746993 R60.0 this is a problem and is an issue relates has had to take extra furosemid on occ so the new order will be she will take a extra dose of furosemide for three days in a row will adjust her RX Essential hypertension 66165314 I10 bp is currently doing ok overall and is very pleasedsee below Hypertensive disorder 38 064796 I10 bp are reviewed and are quite stable and pt tolerates taking carvedilol no evidence of elevated bp during the days prior to her admission relates is stopping on her own the carvedilol due to her feeling lighteaded and has been stable Impaired f asting glycemia 569383162 R73.01 a1c is good at 6.0 no issues [id number] Patrice Rangel DO [facility] Internal Medicine [address] [facility] [address],[place] [address] 05/30/2022 09:56:04 05/30/2022 13:44:40 Essential hypertension 65247607 I10 bp is currently doing ok overall and is very pleasedsee below Hypertensive disorder 38 247380 I10 on losartan and this is giving her raspy voice etcwe will move to labetolol low dose and try this Impaired f asting glycemia 397338151 R73.01 a1c is good at 6.0 no issues Acute pulmonary edema 40 257960 J81.0 no longer an issue as she has been on a very strict salt restrictio n and water/ no evid of vol overloadwg t has been stabel with use of the diuretic and keeping below 155 Peripheral vascular disease 046094742 I73.9 markedly improved with the massage and taping Advance care planning 71 2614676 Z71.89 done Restless legs 33214496 G 25.81 will try ropinirole low dose and [place] [address] Patrice Rangel [facility] Internal Medicine [address],[place] [address] 11/30/2022 11:06:53 11/30/2022 12:12:01 Aortic valve stenosis 84630384 I35.0 moderate will be getting another echo Essential hypertension 64733666 I10 bp is currently doing ok overall and is very pleasedsee below Coronary arteriosclerosis 53808211 I25.10 here and is stable with no evidence LDL 73 Impaired f asting glycemia 886905779 R73.01 a1c is great at 5.5 no issues Memory impairment 743840 006 R41.3 we will look into this with her starting some lab and an mri brain [id number] Patrice Rangel [facility] Internal Medicine [address],[place] [place] [address] 06/19/2023 09:56:33 06/19/2023 10:44:46 Essential hypertension 41983914 I10 bp is currently doing ok overall and is very pleasedsee below Peripheral vascular disease 045511740 I73.9 having pain in her legs Intermitte nt claudication 50844533 I73.9 has been having worsening symptoms now involving both legs will need to have this re eval Aortic valve stenosis 60 260400 I35.0 getting yearly echo via cardiolo [id number] Patrice Rangel [facility] Internal Medicine [address],[place] [address] 12/15/2023 08:51:51 12/15/2023 10:25:18 Depression screening 212782721 Z13.31 neg Essential hypertension 94136561 I10 bp is currently doing ok overall and is very pleasedsee below Intermitte nt claudication 37014770 I73.9 doing fantastic after post bypass Peripheral vascular disease 289304406 I73.9 doing fantastic will be considerin g the surgery for the right leg still has some post surg swellling on the left [id number] Patrice Rangel, [facility] Internal Medicine [address] [facility] [address],[place] [address] 04/19/2024 08:56:11 04/19/2024 11:34:24 Coronary arteriosclerosis 07107332 I25.10 here and is stable with no evidence LDL 73 Chronic re nal insufficiency 489322147 N18.9 Aortic valve stenosis 60 758382 I35.0 getting yearly echo via cardiolo Abdominal aortic aneurysm 618107294 I71.40 Carotid atherosclerosis 914523821 I65.29 stable and will follow Essential hypertension 27106153 I10 bp is currently doing ok overall and is very pleasedsee below Pain in mu ltiple muscles 3172149991 M79.10 needs lab Idiopathic peripheral neuropathy 86994325 G60.9 having ongoing burning inher feet Health Concerns Section Related Observation LastModified by Organization Detai ls LastModified Time None Recorded Concern Status LastModified by Organization Details LastModified Time None Recorded Advance Directives Directive None Recorded Payers Encounter Date Sequence Insurance Name Policy Number Policy Sharp Covered Member ID Sharp Member ID Guarantor Name 05/30/2022 1 [place] [employer] [id number] [employer] 05/30/2022 2 [facility] [employer] [id number] [employer] 11/30/2022 1 [place]: [employer] [id number] [employer] 11/30/2022 2 [facility] [employer] [id number] Rohan Pianting 06/19/2023 1 MEDICARE B-[place]: [facility] [employer] [id number] [employer] 06/19/2023 2 [facility] Rohna [employer]ting [id number] [employer] 12/15/2023 1 MEDIC[place]: [facility] SERVICES [employer] [id number] [employer] 12/15/2023 2 [facility] [employer] [id number] [employer] 04/19/2024 1 MEDIC[place]: [facility] SERVICES [employer] [id number] [employer] 04/19/2024 2 [facility] [employer] [id number] [employer] Notes Date Note Type [...] now and is eating so much betterwgt gaempqd2p is 5.9 and rest of lab is greatno cp no sob Patrice Rangel, DO [address], [place], [address], [facility] 05/30/2022 10:25:10 3 text/htm l here for ddcydv0u is 5.5 doing well eating better and lost 6 lbsfeeling okno cp no sob unless she is exerting such as weeding vacuum stairs and this has worsened a little bitrelates she has noted a bit of trouble with her memorynoted difficulty balancing her checkbook for the very first time Patrice Rangel, DO [address] [place], [address], [facility] Internal Medicine 11/30/2022 12:09:15 4 text/htm l [...] and not checking her bp much Patrice Rangel, DO [address] [place], [address], [facility] Internal Medicine 06/19/2023 10:24:30 4 text/htm l [...] to walk without painstates is coming along wellwalking [facility] Patrice [facility]angel, DO [address] [place], [address], [facility] Internal Medicine 12/15/2023 09:20:13 5 text/htm l [...] having burning in her feet anne Patrice Rangel, DO [address], [place], [address], [facility] 04/19/2024 09:25:26 OBGyn Episode No OBEpisode recorded.
[2024-05-31 14:31] LABS: Erythrocyte Sedimentation Rate 20 MM/HR (0-20)
== END 2024-05-31 10:29 | disposition home or self-care (01) ==
LOC: HO.MANLDS 10:28
PROVIDERS: Visit Provider Internal Medicine
DX: M79.10 Myalgia, unspecified site (principal)
CPT/HCPCS: 36415; 83735; 85652; 86140

== ENCOUNTER 2024-10-09 10:33 | Outpatient (REF) | payer MEDICARE, OTHER, SELFPAY ==
--- OUTSIDE RECORDS SUMMARY | 2024-10-09 11:36 | XMS_ITS | Encounter Summary ---
Author Organization [facility] Address [address] [address] Phone Care Team Providers Care Drycleaner Name Role Phone Patrice Velasquez DO Primary Care Provider [phone] Reji Weinstein MD Unavailable [phone] Encounter Details Date Type Department Care Team (Late st Contact Info) Description 04/04/2018 Ancillary Orders Virtual Department [address] [place] [address] Patrice Velasquez DO [address] [facility] [place] [address] [place] [address] [email or web address] Neuralgia and neuritis Social History Tobacco Use Types Packs/Day Years Used Date Smoking Tobacco: Never Smokeless Tobacco: Never Alcohol Use Standard Drinks/Week Comments No 0 (1 standard drink = 0.6 oz pur e alcohol) Comments Unknown Sex and Gender Information Value Date Recorded Sex Assigned at Not on file Legal Sex Female 10:11 PM EDT Gender Identity Not on file Sexual Orientation Not on file documented as of this encounter Plan of Treatment Not on file documented as of this encounter Results * XR LUMBOSACRAL SPINE 4 OR MORE VIEWS (04/04/2018 9:24 AM EST) Anatomical Region Laterality Modality L-spine Radiographic Tori ging 04/04/2018 11:0 3 AM EST Impressions 04/04/2018 11:05 AM EST Chronic degenerative disc disease without acute bony abnormality apparent. POS - [id number] Narrative 04/04/2018 11:05 AM EST COMPARISON: 09/02/2015 CT FINDINGS: Frontal, lateral, and oblique views were obtained revealing no vertebral body fracture or subluxation. There are chronic degenerative disc changes at the L2-3 and L3-4 levels. There is calcification in the L5-S1 disc space. No spondylolysis or advanced degenerative facet changes are apparent. Iliac stents are present. Procedure Note Breana Lynch MD - 04/04/2018 COMPARISON: 09/02/2015 CT FINDINGS: Frontal, lateral, and oblique views were obtained revealing no vertebralbody fracture or subluxation. There are chronic degenerative disc changesat the L2-3 and L3-4 levels. There is calcification in the L5-S1 discspace. No spondylolysis or advanced degenerative facet changes areapparent. Iliac stents are present. IMPRESSION: Chronic degenerative disc disease without acute bony abnormalityapparent. POS - [id number] Patrice Velasquez DO IMG XR SPINE Final Result documented in this encounter Visit Diagnoses Diagnosis Neuralgia and neuritis Neuralgia and neuritis documented in this encounter Care Teams Drycleaner Relationship Specialty Start Date End Date Patrice Velasquez DO PCP - General Internal Medicine 02/25/18 Reji Weinstein MD [address] [place] [address], [address] [place] [address] Neurology 07/11/18 documented as of this encounter Additional Source Comments The information contained in this document represents components of the legal health record. It is not the complete legal health record.[facility]
--- OUTSIDE RECORDS SUMMARY | 2024-10-09 11:36 | XMS_ITS | Continuity of Care Document ---
Author Organization [facility], [facility] Address [address] [facility] [place] [address] [place] [address] Assessment No assessment recorded. Plan of Treatment Reminders Order Date Submit Date Provider Last Modified By Organization Details Last Modified Time Details Appointments MEDICARE ANNUAL WELLNESS 2024 09:45A M DR RANGEL Not available Not available Not available Lab CBC w/ auto diff 2024 025 [facility], [address] [place] [address], [address], 10/09/2024 10:27:54 ESR (erythroc yte sedimenta tion rate), blood 2024 025 [facility], [address] [place] [address], [place], [address], 10/09/2024 10:27:54 ige, total, serum 2024 025 [facility], [address] [place] [address], [address], 10/09/2024 10:27:54 Referral wheat inspector referral 2024 025 Mundo Aggarwal, [address] [place], [address], 10/09/2024 10:36:05 Procedures None recorded. Surgeries None recorded. Imaging None recorded. Medication Orders hydroxyzi ne HCl 25 mg tablet 2024 025 [id number], [address] [place] [address], [phone], 10/09/2024 10:26:55 methylpre dnisolone 4 mg tablets in a dose pack 2024 025 [id number], [address] [place], [place], [phone], 10/09/2024 10:26:53 Patient TargetsNo targets recorded. 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 Referral for Acute allergic reaction Referring Physician: Patrice Rangel, Internal Medicine, Encounter Date: 10/09/2024 Problems Name Problem SNOMED Code Status Onset Date Resolution Date Notes Provider Name and Address Organization Details Recorded Time Peripher al vascular disease 011407882 Active 2017 Not Available [facility] 2 12:47:34 Carotid artery stenosis 51966948 Active 2017 Not Available [facility] 2 12:47:34 Palpitat ions 46826068 Active 2017 Not Available [facility] 2 12:47:34 Restless legs 06092866 Active 2017 Not Available [facility] 2 12:47:34 Sesamoid itis 17468730 Active 2017 right Not Available [facility] 2 12:47:34 Impaired fasting glycemia 909769747 Active 2017 Not Available [facility] 2 12:47:34 Divertic ulitis 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 Not Available [facility] 2 12:47:34 Abdomina l aortic aneurysm 424134632 Active 2017 aortic & iliac stent Not Available [facility] 2 12:47:34 Gastriti s 5189127 Active 2017 Not Available [facility] 2 12:47:34 Esophagi tis 14765955 Active 2017 Not Available [facility] 2 12:47:34 Gastroes ophageal reflux disease 004728169 Completed 201712/08/2017 Patrice CanalesChanelle Rangel, DO [address] [place], [address], [facility] Internal Medicine 8 10:29:23 Hiatal hernia 61593449 Active 2017 Not Available [facility] 2 12:47:34 Disorder of carotid artery 713308757 Active 2017 Not Available [facility] 2 12:47:34 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 Not Available [facility] 2 12:47:34 Left bundle branch block 95830926 Active 2017 Not Available [facility] 2 12:47:34 Coronary arterios clerosis 16769740 Active 2017 Not Available [facility] 2 12:47:34 Rectal hemorrha ge 54553658 Active 2017 Not Available [facility] 2 12:47:34 Acute pulmonar y edema 93798096 Completed 201805/30/2022 Patrice AllyChanlele Rangel, DO [address] [place], [address], [facility] Internal Medicine 3 10:16:38 ECG: sinus arrhythm ia 246175938 Active 2018 Not Available [facility] 2 12:47:34 Essentia l hyperten artemio 33717394 Active 2018 Not Available [facility] 2 12:47:34 Systolic murmur 69579554 Active 2018 Not Available [facility] 2 12:47:34 Idiopath ic peripher al neuropat hy 43168924 Active 2020 Not Available [facility] 2 12:47:34 Edema of lower extremit y 152068475 Active 2020 Not Available [facility] 2 12:47:34 Aortic valve stenosis 26208325 Active 2020 Not Available [facility] 2 12:47:34 Night sweats 23574214 Active 2021 KHUSHBOO MATTHEWS [address] [place], [address], [facility] 2 10:31:22 Lyme disease 98515892 Active 2022 Patrice Rangel, DO [address] [place], [address], [facility] Medicine 3 17:37:48 Lymphade nopathy 38074857 Active 2022 Patrice Rangel, DO [address] [place] [address], [address], [facility] 3 17:38:06 Pain of multiple joints 27830417 Active 2022 Patrice Rangel DO [address] [place] [address], [address], [facility] 3 17:39:21 Memory impairme nt 663040112 Active 2022 Patrice Rangel, DO [address] [place] [address], [address], [facility] 3 12:02:08 Cough 53527595 Active 2023 KHUSHBOO MATTHEWS [address] [place] [address], [address], [facility] 4 10:08:01 Acute bronchit is 30523819 Active 2023 KHUSHBOO MATTHEWS [address] [place] [address], [address], [facility] 4 17:08:53 Nausea 936494294 Active 2023 KHUSHBOO MATTHEWS [address] [place] [address], [address], [facility] 4 16:47:49 Chronic renal insuffic iency 520446019 Active 2023 Patrice Rangel DO [address] [place] [address], [address], [facility] Internal [facility] 4 10:15:20 Intermit tent rishi brown 49408729 Active 2023 Patrice Rangel, DO [address] [place] [address], [address], [facility] Medicine 4 10:16:55 Carotid atherosc lerosis 404044285 Active 2024 Patrice Rangel, DO [address] [place] [address], [address], [facility] Medicine 5 09:12:17 Statin-i nduced myopathy Active 2024 Patrice Rangel DO [address] [place] [address], [address], [facility] 5 09:14:10 Pain in multiple muscles Active 2024 Patrice Rangel DO [address] [place] [address], [address], [facility] Medicine 5 09:23:28 Acute allergic reaction 082713699 Active 2024 Patrice Rangel DO [address] [place] [address], [address], [facility] Internal Medicine 5 10:13:38 Problem Notes None recorded. Medical Equipment None Reported. Allergies Allergen ID Allergen Name Allergen Category Reaction Reaction Severity Criticality Documentation Date Start Date Code Code System Note Provider Name and Address Organization Details Recorded Time 2320 lisinopri l medicatio n cough Not available Not available 12/08/2017 45578 RxNorm Patrice Rangel DO [address] [place] [address], [address], [facility] Internal Medicine 8 10:28:09 4258 Iodinated contrast media (substanc e) medicatio n Not available Not available Not available 03/31/2020 04311 2003 [facility] 1 09:32:59 8706 rosuvasta tin medicatio n myalgias (muscle pain) Not available low 04/19/2024 03631 2 RxNorm Patrice Rangel, DO [address] [place], [address] , [facility] Internal Medicine 5 09:08:02 Medications [...] Not Available Not Available No t Available clotrimazol e-betametha sone 1 %-0.05 % topical [...] completed Not Available Not Available Not Available hydroxyzine HCl 25 mg tablet Take 1 tablet 3 times a day by oral route for 5 days, for severe itching only. 2024 active Not Available Not Available Not Avai lable mupirocin 2 % topical ointment Apply 1 applicati on 3 times a day by topical route as needed for 10 days. 01/21 completed Not Available Not Available Not Available furosemide 20 mg tablet TAKE 1 TABLET BY MOUTH EVERY DAY. MAY TAKE AN ADDITIONA L DOSE FOR 3 DAYS WHEN WEIGHT EXCEEDS 2 POUNDS active Not Available Not Available No t Available Aspir-81 mg tablet,shanna yed release Take 1 tablet every day by oral route. active Not Available Not Available No t Available methylpredn isolone 4 mg tablets in a dose pack Take 1 dose pk by oral route for 6 days. 2024 active Not Available Not Available Not Avai lable labetalol 100 mg tablet TAKE 1 TABLET [...] EACH NOSTRIL DAILY SHAKE WELL BEFORE USING 10/09 completed Not Available Not Available Not Available doxycycline hyclate 100 mg tablet Take [...] Available carvedilol phosphate ER 10 mg capsule,ext .[id number] r multiphase Take 1 capsule every day [...] blood by Pulse oximetry Heart rate Systolic And Diastolic Provider Name and Address Organization Details Last Updated DateTime 5 156.21 cm 29.6 kg/m2 53516.2 6 g 96 % 96 % 73 /min 122/78 mm[Hg] Zaina Rocha [facility] Internal Medicine 5 09:57:07 Social History Question Answer Notes LastModified by Organizat ion Details LastModified Time Tobacco Smoking Status Never Smoker Not Available [facility] 01/21/2020 03:36:24 What Was The Date Of Your Most Recent Tobacco Screening? 10/09/2024 [email or web address] Information not available 10/09/2024 Sex: Unknown Functional Status Question Answer Note LastModified by Organization D etails LastModified Time Do you or have you ever used any other forms of tobacco or nicotine? No Information not available 08/20/2021 Mental Status None recorded. Family History Nothing Reported. Medical History No medical history recorded. Gynecological HistoryNo gynecological history recorded. Obstetrics History GPAL:G 0 P 0 0 0 0 Immunizations Vaccine Type Date Status Note Provider Nam e and Address Organization Details Recorded Time COVID-19, mRNA, LNP-S, PF, 30 mcg/0.3 mL dose 07/29/2020 completed Not Available [facility] 2 19:46:08 COVID-19, mRNA, LNP-S, PF, 30 mcg/0.3 mL dose 08/20/2020 completed Not Available [facility] 2 19:46:08 COVID-19, mRNA, LNP-S, PF, 30 mcg/0.3 mL dose 04/06/2021 completed Not Available [facility] 2 19:46:08 COVID-19, mRNA, LNP-S, PF, 30 mcg/0.3 mL dose 08/23/2021 completed Marce ang [facility] Internal Medicine 08/24/2021 13:33:30 Past Encounters Encounter ID Performer Location Encounter Start Date Encounter Closed Date Diagnosis/Indication Diagnosis SNOMED-CT Code Diagnosis ICD10 Code Diagnosis Note [id number] DO [facility] [address] [facility],[place] [address] 10/09/2024 09:40:25 10/09/2024 10:36:05 Essential hypertension 98266508 I10 bp is currently doing ok overall and is very pleasedsee below Acute carol rgic reaction 747782914 T78.40XA General ex amination of patient 478832442 Z00.00 stable except for the allergic reaction Health Concerns Section Related Observation LastModified by Organization Detai ls LastModified Time None Recorded Concern Status LastModified by Organization Details LastModified Time None Recorded Payers Encounter Date Sequence Insurance Name Policy Number Policy Sharp Covered Member ID Sharp Member ID Guarantor Name 10/09/2024 1 [place]ICARE [place]: [employer] [id number] [employer] 10/09/2024 2 [facility] [employer] [id number] [employer] Notes Date Note Type Note Provider Name and Address Organization Details Recorded Time 5 text/htm l Care Management - HypertensionReported bypatient.Self Care:not under emotional stress Severity:symptoms are improving; does not interfere with daily activities Associated Symptoms:no dizziness; no lightheadedness; no chest pain; no shortness of breath; no palpitations; no edema; no calf muscle cramps; no blurred vision; no confusion; no headaches; no fatigue developed this rash 10 days ago was seen at and told had a poison ivyprednisone high dose taper did nothingstarted on her chin and developed progressively for the last 10 days to encompass her shoulder arms legs and buttock crease and under belly etc but seems to be spreading down her legs Patrice Rangel, DO [address] [facility], [place], [address], [facility] 10/09/2024 10:28:09 OBGyn Episode No OBEpisode recorded.
[2024-10-09 13:23] LABS: MANUAL DIFF FLAG NO
[2024-10-09 13:36] LABS: Hematocrit 44.5 % (37.0-47.0); Hemoglobin 14.1 g/dl (12.0-16.0); Imm Gran Abs Auto 0.04 X10*3/uL (0.00-0.03); Imm Gran Pct Auto 0.4 % (0.0-0.4); Lymphocytes Absolute Auto 1.3 X10*3/uL (1.2-4.9); Mean Corpuscular HGB Conc 31.7 g/dl (31.0-35.0); Mean Corpuscular Hemoglobin 28.5 pg (27.0-33.0); Mean Corpuscular Volume 90.1 fL (80.0-98.0); NRBC Abs Auto 0.000 X10*3/uL (0.0-0.012); NRBC Pct Auto 0.0 /100WBC (0.0-0.2); Platelet Count 197 X10*3/uL (160-400); Red Blood Count 4.94 X10*6/uL (4.20-5.50); White Blood Count 8.9 X10*3/uL (4.8-10.8)
== END 2024-10-09 10:34 | disposition home or self-care (01) ==
LOC: HO.MANLDS 10:33
PROVIDERS: Visit Provider Internal Medicine
DX: T78.40XD Allergy, unspecified, subsequent encounter (principal)
CPT/HCPCS: 36415; 82785; 85025; 85652